=== PATIENT | male | born 1955 | race Caucasian/White ===

== ENCOUNTER → 2020-04-27 15:51 | Outpatient (BNVA) | payer OTHER, SELFPAY | PROVIDERS: Referring Provider Family Medicine; Visit Provider Orthopaedic Surgery | DX: M25.512 Pain in left shoulder (principal); G89.29 Other chronic pain | CPT/HCPCS: 73030 ==

== ENCOUNTER → 2020-05-04 09:42 | Outpatient (BNVA) | payer OTHER, SELFPAY | PROVIDERS: Visit Provider Family Medicine | DX: Z13.6 Encounter for screening for cardiovascular disorders (principal); R55 Syncope and collapse; R07.89 Other chest pain | CPT/HCPCS: 80053; 80061; 85025 ==

== ENCOUNTER 2020-05-17 07:45 | Outpatient (CLI) | payer OTHER, SELFPAY ==
--- NOTE | 2020-05-17 08:00 | MR_ITS ---
WS: [id number] MRI LEFT SHOULDER HISTORY: M25.512 - Pain in left shoulder COMPARISON: Radiograph 04/27/2020. TECHNIQUE: Multiplanar sequences of the shoulder joint are submitted. Fixation plate and screws in the mid clavicle causing artifact and distortion. Mild hypertrophic jj ges at the AC joint. Mild impingement upon the supraspinatus. There is a small amount of fluid in the subacromial and subdeltoid bursa. No os acromion. Biceps tendon is abnormal. There is abnormal signa l throughout a large portion of the biceps tendon in the bicipital groove. Tendon is thickened and en larged with a split tear. No displacement from the bicipital groove. Large amount of fluid like signa l filling a large gap over the anterior humeral head at the attachment site of the supraspinatus and subscapularis tendons. There is complete full-thickness tear at the insertion site of the supraspinat us. Marked tendinopathy of the distal subscapularis tendon but no definite full-thickness tear. Incidentally noted is atrophy of the pectoralis minor muscle. Increase fluid in the glenohumeral join t with narrowing of the joint space. No definite labral tears. MR/MR shoulder LT wo con* [id number] IMPRESSION: 1. Large full-thickness anterior supraspinatus tendon tear at the insertion si te with marked adjacent tendinopathy in the distal supraspinatus and subscapula ris tendons. 2. Abnormal biceps tendon. Thickening of the biceps tendon with increased sign al consistent with a split tear and tendinopathy but no displacement. 3. Mild glenohumeral joint arthritis.
== END 2020-05-17 07:46 | disposition home or self-care (01) ==
LOC: RADSHAW 07:49
PROVIDERS: PCP Family Medicine; Visit Provider Orthopaedic Surgery
DX: G89.29 Other chronic pain (principal); M75.102 Unspecified rotator cuff tear or rupture of left shoulder, not specified as traumatic; M13.88 Other specified arthritis, other site
CPT/HCPCS: 73221

== ENCOUNTER 2020-05-20 06:40 | Outpatient (CLI) | payer OTHER, SELFPAY ==
--- NOTE | 2020-05-20 07:00 | USCV_ITS ---
Artemio Chris Age: 64 Gender: M : 1955 Exam Date: 05/20/2020 07:31 Ordering Phys: Benita Urias DO Technologist: Enrique Coffey Exam Location: [facility] [place] Indication: PRE SYNCOPE Risk Factors: None Previous Vascular Surgery: Right Brachial BP: / Left Brachial BP: / Right Left Velocity (cm/s) Spectral Plaque Velocity (cm/s) Spectral Plaque Syst/Diast Broadening Syst/Diast Broadening 66.00/ 14.70 Prox CCA 64.80 / 13.60 62.25/ 16.70 Mid CCA 66.30 / 12.10 57.05/ 13.05 Hetro Distal CCA 64.10 / 12.10 Hetro 60.30/ 13.35 Hetro Prox ICA 76.40 / 19.50 Hetro 55.50/ 13.00 Mid ICA 81.10 / 7.80 57.33/ 16.40 Distal ICA 70.20 / 13.30 79.00 ECA 78.70 1.12 ICA/CCA 1.22 Antegrade Vertebral Antegrade 43.70/ 12.10 cm/s 74.10/ 15.60 cm/s Tri Subclavian Tri 99.00 1.60 FINDINGS Mild to moderate heterogeneous plaques at the bifurcations bilaterally Intimal thickening in the common carotid arteries bilaterally Antegrade flow in the vertebral arteries bilaterally Normal Doppler flow velocities in the external carotid arteries bilaterally CONCLUSIONS Mild to moderate heterogeneous plaques at the bifurcations bilaterally. No significant stenosis, based on the above findings. Dr Kaleb Perez MD [facility] (Electronically Signed) Final Date: 20 May 2020 21:06 S
--- NOTE | 2020-05-20 08:00 | USCV_ITS ---
Chris Ulloa Age: 64 Gender: M : 1955 Exam Date: 05/20/2020 07:09 Ordering Phys: Benita Urias DO Technologist: Enrique Coffey Exam Location: [facility] – [place] Indication: PRE-SYNCOPE BP: 148 / 74 HR: 68 Rhythm: Sinus Technical Quality: Good MEASUREMENTS (Male / Female) Normal Values 2D ECHO LV Diastolic Diameter PLAX 3.4 cm 4.2 - 5.9 / 3.9 - 5.3 cm LV Systolic Diameter PLAX 2.0 cm IVS Diastolic Thickness 1.2 cm 0.6 - 1.0 / 0.6 - 0.9 cm IVS Systolic Thickness 1.4 cm LVPW Diastolic Thickness 1.1 cm 0.6 - 1.0 / 0.6 - 0.9 cm LVPW Systolic Thickness 1.5 cm LVOT Diameter 2.1 cm LV Ejection Fraction 2D Teich 73.2 % LV Ejection Fraction MOD 2C 68.0 % LV Ejection Fraction 2C AL 68.4 % LA Diameter 3.5 cm LA Width 3.5 cm LA Height 3.5 cm RA Width 3.0 cm RA Height 4.2 cm M-MODE LV Diastolic Diameter MM 4.7 cm 4.2 - 5.9 / 3.9 - 5.3 cm LV Systolic Diameter MM 3.6 cm LV Ejection Fraction MM Teich 47.9 % IVS Diastolic Thickness MM 0.8 cm 0.6 - 1.0 / 0.6 - 0.9 cm IVS Systolic Thickness MM 1.5 cm LVPW Diastolic Thickness MM 1.2 cm 0.6 - 1.0 / 0.6 - 0.9 cm LVPW Systolic Thickness MM 1.8 cm RV Diastolic Diameter MM 1.3 cm Aortic Annulus Diameter 3.6 cm LA Ao Ratio MM 1.1 MV E Point Septal Separation 1.0 cm DOPPLER AV Peak Velocity 158.0 cm/s MV Area PHT 3.7 cm squared Mitral E to A Ratio 1.0 MV E' Velocity 38.5 cm/s Mitral E to MV E' Ratio 10.6 Mitral E to LV E' Lateral Ratio 11.8 Mitral E to LV E' Septal Ratio 9.7 TR Peak Velocity 129.0 cm/s TR Peak Gradient 6.7 mmHg TV Peak E Velocity 145.0 cm/s Right Atrial Pressure 3.0 mmHg Pulmonary Artery Systolic Pressu 9.7 mmHg PV Peak Velocity 103.0 cm/s FINDINGS Left Ventricle Normal left ventricular size and systolic function, EF 65 %. No regional wall motion abnormalities. Grade I/IV diastolic dysfunction (abnormal relaxation filling pattern), normal to mildly elevated filling pressures. Right Ventricle The right ventricle is normal in size and function. Right Atrium The right atrium is normal in size. Left Atrium The left atrium is normal in size. Mitral Valve Trace mitral valve regurgitation. Aortic Valve Thickened aortic valve. Trace aortic valve regurgitation. Tricuspid Valve Trace tricuspid valve regurgitation. Pulmonic Valve Pulmonic valve not well visualized. Pericardium Normal pericardium without effusion. Aorta Normal ascending aorta dimension. CONCLUSIONS Normal left ventricular size and systolic function, EF 65 %. No regional wall motion abnormalities. Grade I/IV diastolic dysfunction (abnormal relaxation filling pattern), normal to mildly elevated filling pressures. Thickened aortic valve. Trace aortic valve regurgitation. Trace tricuspid valve regurgitation. Trace mitral valve regurgitation. There is no pericardial effusion. There are no intracardiac masses. No previous study is available for comparison. Dr Kaleb Perez MD [facility] (Electronically Signed) Final Date: 20 May 2020 13:57 S
== END 2020-05-20 06:41 | disposition home or self-care (01) ==
LOC: RAD 06:42
PROVIDERS: PCP Family Medicine; Visit Provider Family Medicine
DX: R55 Syncope and collapse (principal); I08.3 Combined rheumatic disorders of mitral, aortic and tricuspid valves; I65.23 Occlusion and stenosis of bilateral carotid arteries
CPT/HCPCS: 80048; 82043; 93306; 93880

== ENCOUNTER 2020-05-28 06:45 | Day surgery (SDC) | payer OTHER, SELFPAY ==
--- NOTE | 2020-05-28 07:06 | ECG_ITS ---
[facility] Test Date: 2020-05-28 Pat Name: Chris Ulloa Department: Room: Gender: Male Insolvency Consultant: Karey Kang : 1955 Requested By: Benita Urias Order Number: [id number] Zeynep MD: MAYA WELLS Interpretive Statements NAME OF STUDY: TREADMILL STRESS TEST INDICATION: Chest Pain EXERCISE DATA: The patient was exercised by Stanton protocol. Baseline heart rate was 76 beats per minute. Baseline blood pressure was 173/89 millimeters of mercury. Target heart rate was 157 beats per minute. Maximum heart rate achieved was 129, which was 82 % of the target heart rate. Maximum blood pressure was 214/90 millimeters of mercury. Total exercise time was 8 minutes 25 seconds. Maximum METs achieved was 10.2, maximum VO2 was 35.7. The reason for ending the test was abnormal EKG changes. The patient complained of shortness of breath and chest pain during the stress test, which then resolved at the end of the test. ELECTROCARDIOGRAM: BASELINE: Sinus rhythm, normal axis, no significant ST-T changes at the baseline noted. EXERCISE: At the peak exercise level, inferolateral significant ST-T changes suggestive of ischemia noted. RECOVERY: During the recovery period, heart rate dropped appropriately. No significant ST-T changes in the recovery suggestive of ischemia noted. CONCLUSION: 1. Exercise capacity fair. 2. Heart rate response was appropriate. 3. Blood pressure response was hypertensive. 4. Symptoms suggestive of ischemia. 5. Electrocardiogram portion of the stress test was suggestive of ischemia. 6. Nuclear scan was canceled due to strong positive EKG segment of the stress test.Patient is referred for left heart cath. Electronically Signed On 05-31-2020 13:27:58 INBOUND SALES REPRESENTATIVE by MAYA WELLS [id number]
[2020-05-28 07:07] VITALS: BMI 21.7
--- NOTE | 2020-05-28 08:43 | PC.NURSE ---
Patient reports no pain or discomfort prior to the start of the procedure.
--- NOTE | 2020-05-28 09:04 | SUR.PHASEI ---
DISCUSSION Dr Lewis in to discuss finding of stress test with the patient. TST to be done as ordered. Patient to be added to cath schedule today. Handing off patient to CPR[facility], pending a bed assignment, for further managment pending cath. IV left in place as cath is tentavely scheduled for 1200 today! Report off to Bambi CONNER.
[2020-05-28 09:17] VITALS: BP 176/86; PULSE 88
--- NOTE | 2020-05-28 11:52 | XACV_ITS ---
Exam Room: [facility] Ht: 191 cm Wt: 79 kg BSA: 2.04 m2 Gender: Male : 1955 Any Known Allergies: No known allergies Exam Priority: Routine Procedure(s): Procedure Description: Diagnostic procedure Procedure Description: Left Heart Catheterization Procedure Description: Left ventriculography Procedure Description: Coronary Angiography Diagnostic Findings * LM has 0% stenosis. * mLAD: Severe 80% stenosis, JAXON: 3 flow. * mLAD: Moderate 70% stenosis, JAXON: 3 flow. * dLAD: Moderate 70% stenosis, JAXON: 3 flow. * 1st Diag: Mild 30% stenosis, JAXON: 3 flow. * 2nd Diag: Moderate 50% stenosis, JAXON: 3 flow. * pCIRC: Severe 80% stenosis, JAXON: 3 flow. * 1st OM: Severe 95% stenosis, JAXON: 3 flow. * mRCA: Severe 90% stenosis, JAXON: 3 flow. * RPDA: Moderate 50% stenosis, JAXON: 3 flow. * Coronary angiography shows co-dominance. Conclusions 1. There is severe coronary artery disease with three vessel disease. 2. Normal left ventricular systolic function. Ejection fraction of 60%. 3. Indication 4. for left heart cath: 5. High risk 6. stress test 7. with 8. chest pressure and chest pain 9. .. Recommendations * 1-Return to [facility] for close monitoring and routine post cath care 2-Continue medical managment 3-CT surgery consult to Dr Torres at [facility] [place] called since we do not have our surgeon around. 4-Statin with LDL goal of 70 mg/dl, aspirin 81 mg p.o. daily for life long 5-Follow up with Dr. Lewis in four weeks and establish care with primary care physician. Diagnostic RX Recommendation: CABG Ventriculography Ejection Fraction: 55.0 % Left Ventriculography Findings: * Normal left ventricle ejection fraction 55%, left ventricular end-diastolic pressure normal. * No * gradient across aortic valve * was noted.. Pressures Phase:Rest AO : 104 / 74 ( 90 ) @ 7:03:00 AM 111 / 71 ( 91 ) @ 7:07:00 AM 131 / 21 ( 68 ) @ 7:13:00 AM LV : 146 / 0 / @ 7:12:00 AM 151 / -6 / @ 7:13:00 AM Clinical Evaluation EBL: 5mL-10mL Procedural Details Procedure Consent Obtained. Pre-Procedure Time Out. Identified patient by full name and date of as verbalized by the patient/guarantor. Does the consent match the physician's order: Yes. Accurate & Complete Informed Consent: Yes. Inpatient/Outpatient History & Physical on Chart: Yes. If H&P is completed, is and addenduem needed: N/A; If yes, is the addendum complete: N/A. Visualize and Verify Site with Patient/Guarantor: N/A. Relevant Radiology Images available: Yes. Pre-op teaching completed and patient verbalized understanding. The risks, benefits, and alternatives of sedation and/or procedure were discussed by physician. The patient agrees to continue. Procedure started. PERRLA. Strong, equal hand risk assessor bilaterally. Lungs clear x 5 lobes. IV Site on Arrival: 22 gauge in the left anticubital. IV Fluids: 0.9% NaCl at KVO. 0 mL infused prior to laborer marine terminal. Oxygen started at 2liters/min via nasal canula. right groin was prepped with chloroprep then draped in the usual sterile fashion. right radial was prepped with chloroprep then draped in the usual sterile fashion. Physician notified. Baseline sample Acquired. HR: 65 BPM. Physician arrived. Patient's family updated. Equipment: 6F - Radial. Cardiac Cath Pack. ACIST Manifold Kit Model BT 2000. Heparinized Saline (2 units/mL), 1000 mL bag. Physician scrubbed in. Immediate Pre-Procedure Time Out. Correct Patient: Yes; Correct Procedure: Yes; Correct Site: Yes; Correct Patient Position: Yes; Correct Supplies: Yes; Dried Flammable Prep: Yes; Blood Products Available: No;. Lidocaine 1% infiltrated to the right radial. Arterial access obtained. A 5 beninese TIG catheter in over wire. Multiple views taken of left coronary artery. Catheter redirected to the RCA. Multiple views taken of right coronary artery. Catheter out. A 5 beninese Angled Pig catheter in over wire. EDP Sample taken: LV 146/-1,17; HR: 55 BPM; SpO2: 93%. LV gram performed in VEGA @ 10 mL/second for a total of 30 mL. EDP Sample taken: LV 151/-7,17; HR: 57 BPM; SpO2: 95%. Pullback taken: LV Off; AO Off; Mean: , Peak to Peak: , SEP: ; HR: 58 BPM; SpO2: 96%. Catheter out. A TR Band was successful obtaining hemostatsis at the Right Radial artery insertion site. TR band placed. Hemostasis obtained. Post Procedure: Pulses reassessed and unchanged. PERRLA. Strong, equal hand risk assessor bilaterally. No VTE prophylaxis required. Fluoro: 4:30. Contrast type used: Omnipaque 300 mgI/mL, 500 mL bottle. [id number]. Complications: none. Estimated blood loss: 5mL-10mL. Procedure completed. Patient transferred by wheelchair to 1st floor. Medication's Wasted: Lidocaine 1% = 15 mL. Medication's Wasted: Nitro = 49.8 mg. Medication's Wasted: Heparin = 1000 units. Total IV fluids: 50 mL. [facility] Clinical Fraility Score: 2: Well. Tower Dragline Operator Indications: New Onset Angina. Chest Pain Symptom Assessment: Typical Angina Symptoms. Post-op diagnosis: 3 vessel disease. Vital chart was stopped. Access Site Site: Right Radial artery Sheath Size: 6 Fr Hemostasis Method: TR Band Hemostasis Success: Successful Procedure Medications Start: 12:46 PM Stop: 12:46 PM Medication: Versed Amount: 1 mg Route: I.V. Start: 12:46 PM Stop: 12:46 PM Medication: Fentanyl Amount: 50 mcg Route: I.V. Start: 12:57 PM Stop: 12:57 PM Medication: Versed Amount: 1 mg Route: I.V. Start: 12:57 PM Stop: 12:57 PM Medication: Fentanyl Amount: 50 mcg Route: I.V. Start: 1:00 PM Stop: 1:00 PM Medication: Nitrogylcerin Amount: 200 mcg Route: I.A. Start: 1:02 PM Stop: 1:02 PM Medication: Heparin Amount: 5000 units Route: I.V. I, the attending physician, have reviewed and verified all procedure medications. Yes, all medications given per verbal order History/Risk Factors Tobacco Use: Never Report Signatures Finalized by Ana Maria Lewis MD on 05/29/2020 05:14 PM
[2020-05-28 11:59] LABS: SARS Covid-2 Antigen Negative (Negative)
[2020-05-28 12:02] LABS: Hematocrit 40.3 % (42.0-52.0); Lymphocytes # 1.4 10^3/uL (0.8-4.8); Mean Corpuscular HGB Conc 32.3 g/dL (30.0-36.0); Mean Corpuscular Hemoglobin 30.5 pg (28.0-34.0); Mean Corpuscular Volume 94.6 fL (80-94); Mean Platelet Volume 11.4 fL (7.4-10.4); Monocytes # 0.4 10^3/uL (0.2-0.9); Neutrophils # 1.97 10^3/uL (1.8-7.7); Neutrophils % 50.7 %; Nucleated Red Blood Cells % 0 %; Platelet Count 260 10^3/cmm (130-400); Red Blood Count 4.26 10^6/uL (4.1-5.3); Red Cell Distribution Width 13.1 % (12.1-15.1); White Blood Count 3.9 10^3/uL (4.0-10.0)
[2020-05-28] MEDS: metoprolol tartrate 25 mg Tablet 12.5 MG PO (12:05)
[2020-05-28] MEDS: aspirin 325 mg Tablet PO (12:05)
[2020-05-28 12:10] LABS: INR 0.98 (0.8-1.2)
[2020-05-28 12:17] LABS: Blood Urea Nitrogen 11 mg/dL (8-23); Calcium 9.6 mg/dL (8.5-10.5); Carbon Dioxide 29 mmol/L (22-29); Chloride 102 mmol/L (98-107); Glomerular Filtration Rate 67.6 mL/min (90-130); Glucose 94 mg/dL (65-115); Osmolality Calculated 289 mOsm/kg (285-295); Sodium 140 mmol/L (136-145)
--- NOTE | 2020-05-28 12:42 | PM.HP ---
Providers/Chief Complaint Primary Care Provider: Benita Urias DO Chief Complaint: chest pain 35966 R07.89 History of Present Illness Chris Ulloa is a 64 year old male past medical history significant for strong family history of coronary artery disease apart from nothing significant started experiencing shortness of breath along with chest pressure for the last 6-month which has been worsening over time to the extent that he has to stop many time during mowing lawn. He mentioned it to his primary care physician who ordered a stress test. In the middle of the stress test patient started having chest pain and shortness of breath with dynamic EKG changes with ST elevation in the aVR and inferolateral ST depression. Test was stopped patient continues with some chest pressure he was given nitro which resolved the chest pain. Due to high risk stress test it was suggested that patient should undergo angiogram. It is the reason patient has been admitted to the hospital. We will proceed with left heart cath and PCI if indicated. Patient has been explained all risk benefit and alternative for the procedure. Patient has been explained the risk of major minor bleed arrhythmia life-threatening emergent urgent bypass surgery. He understand and would like to go ahead with it. Patient also understand the long-term necessity of dual antiplatelet therapy he agrees to it. Medications/Allergies Home Medications Medication Instructions Recorded Confirmed Last Taken Type No Known Home Medications 05/04/20 05/17/20 Unknown History Allergies Allergy/AdvReac Type Severity Reaction Status Date / Time No Known Allergies Allergy Verified 05/17/20 15:42 PFSH Acute PFSH: Medical History Central apnea Hemorrhoids Mitral valve prolapse Surgical History H/O knee surgery History of shoulder surgery Social History Smoking and tobacco status: never smoked Alcohol intake: never Vitals/I&O/Wt Last Vital Signs Pulse 88 05/28/20 09:17 BP 176/86 05/28/20 09:17 Weight last 48 hrs Weight 174 lb Physical Exam Narrative: EXAM NARRATIVE: GENERAL: Patient is alert, awake and oriented x3. NECK: No jugular vein distension. HEENT: No cyanosis. No icterus. No pallor. HEART: Regular S1 and S2. No murmur, rub or gallop. LUNGS: Clear to auscultate bilaterally. ABDOMEN: Soft, nontender and nondistended. Positive bowel sounds. No guarding, rebound or tenderness. CENTRAL NERVOUS SYSTEM: Grossly nonfocal. EXTREMITIES: Lower extremities without edema bilaterally. Data : 05/28/20 10:15 05/28/20 10:15 A&P Assessment and plan (1) Unstable angina: Worsening of chest pain along with shortness of breath with increased frequency and duration and high risk stress test with chest pain dynamic EKG changes is suggestive of high-grade lesion mostly in left main or LAD territory. Since patient has ST elevation in the aVR along with ST depression in the inferolateral lead we will proceed with left heart cath and PCI if indicated. Further plan will advise as per progress of the patient Status: Acute (2) Abnormal stress test: As above patient is abnormal stress test we will proceed with left heart cath. Status: Acute Attestations Medical Necessity Statement*: I am not expecting his stay to cross more than 2 midnights. Coding Level of Care Code New Pt Acute Business Systems Lead for Chg Fwd Patient Type New History Detailed Exam Detailed Medical Decision Making Moderate Complexity Diagnoses Unstable angina I20.0 Abnormal stress test R94.39
--- NOTE | 2020-05-28 12:48 | W.PM.OPSUD ---
Surgery/Procedure H&P Update DATE OF PROCEDURE: May 28, 2020 DATE H&P PERFORMED: 05/28/20 H&P UPDATE INFORMATION: I have reviewed H&P completed within last 30 days, I have examined patient prior to procedure and No changes to prior documentation PREOP DIAGNOSIS: Abnormal stress test, chest pain, PATIENT REASSESSED PRIOR TO SEDATION, WITH NO CHANGE NOTED: Yes PHYSICAL EXAM: alert, oriented x 3 and clear to auscultation bilaterally AIRWAY EVAL/ANESTHESIA PLAN: normal airway, see other exam findings, ASA II, Risks, benefits & alternatives of sedation and/or procedure discussed and Patient agrees to continue as planned
[2020-05-28 13:58] VITALS: BP 155/88; PULSE 62; RESP 21
[2020-05-28 14:00] VITALS: BP 157/77; PULSE 58; PULSE 62; RESP 19
--- NOTE | 2020-05-28 15:10 | PC.NURSE ---
Dr howard at bedside to speak with patient about further Plan of care would like for Daughter to be present to aid in decision making Patient also would like for her to be present. Dr howard gave permission to have daughter Monika Toussaint to come in earlier than current vistiting hours. Ander from security notified of situation. Daughter simona notified
--- NOTE | 2020-05-28 17:45 | PM.DCS ---
Discharge Providers Date of Discharge: May 28, 2020 Attending Provider at Discharge: Benita Urias DO Primary Care Provider: Benita Urias DO Diagnoses at Discharge Discharge Diagnosis (1) Unstable angina: Status: Acute (2) Abnormal stress test: Status: Acute Reason for Visit Reason for Visit: chest pain 53196 R07.89 Hospital Course Hospital Course 64-year-old male past medical history significant for extensive history of coronary artery disease in the family underwent stress test for worsening of chest pain and shortness of breath. Inferolateral significant ST depression was noted suggestive of ischemia. Since patient was having chest pain or shortness of breath which is worsened upon exercise admit exercise level we decided to proceed with left heart cath. Patient underwent left heart cath found to have multiple significant coronary artery disease including tandem lesion in the mid to distal LAD, proximal circumflex obtuse marginal and mid RCA. Dr. Vazquez is not available for next 2 weeks therefore we is spoke to [place] who will take the patient as an outpatient since he is stable patient was started on beta-lynn statin aspirin isosorbide mononitrate. I have spoken to [facility] and exchange patient's information with him. Patient also establish contact with [facility] serial CT surgery and planning to go there on the Sunday. Patient has been advised in case of worsening of chest pain shortness of breath at home he can always come to ER. He has been given all the medicines. Physical Exam Narrative: EXAM NARRATIVE: GENERAL: Patient is alert, awake and oriented x3. NECK: No jugular vein distension. HEENT: No cyanosis. No icterus. No pallor. HEART: Regular S1 and S2. No murmur, rub or gallop. LUNGS: Clear to auscultate bilaterally. ABDOMEN: Soft, nontender and nondistended. Positive bowel sounds. No guarding, rebound or tenderness. CENTRAL NERVOUS SYSTEM: Grossly nonfocal. EXTREMITIES: Lower extremities without edema bilaterally. Const: COMMON NORMALS: alert Resp: COMMON NORMALS: clear to auscultation bilaterally AUSCULTATION: clear to auscultation bilaterally Neuro: SENSORIUM/ORIENTATION: Yes alert Discharge Data Data Completed and Pending: Completed Studies During Hospitalization Category Date Time Status Cardiac Stress Te st MIBI [Sestamibi Stress Test Reque st Exams 05/28/20 07:06 Draft ] Routine Pending at discharge Category Date Time Status STYLE ADVISOR request for service Routin e Exams 05/28/20 11:[address] Request Routine Exams 05/28/20 09:12 Ordered CV echo complete* [id number] Routine Ultrasound 05/29/20 05:00 Ordered Labs from last 24 hours 05/28/20 05/28/20 05/28/20 10:15 10:15 10:15 WBC RBC Hgb Hct MCV MCH MCHC RDW Plt Count MPV Neut % (Auto) Lymph % (Auto) [place] % (Auto) Eos % (Auto) Baso % (Auto) Neut # (Auto) Lymph # (Auto) [place] # (Auto) Eos # (Auto) Baso # (Auto) Nucleated RBC % (a uto) Nucleated RBCs # PT 13.20 INR 0.98 Sodium 140 Potassium 4.0 Chloride 102 Carbon Dioxide 29 Anion Gap 13.0 BUN 11 Creatinine 1.1 GFR Calculation 67.6 L Glucose 94 Calculated Osmolal ity 289 Calcium 9.6 SARS-CoV-2 Ag (Rap id) Negative 05/28/20 10:15 WBC 3.9 L RBC 4.26 Hgb 13.0 Hct 40.3 L MCV 94.6 H MCH 30.5 MCHC 32.3 RDW 13.1 Plt Count 260 MPV 11.4 H Neut % (Auto) 50.7 Lymph % (Auto) 37.0 [place] % (Auto) 10.0 Eos % (Auto) 1.0 Baso % (Auto) 1.0 Neut # (Auto) 1.97 Lymph # (Auto) 1.4 [place] # (Auto) 0.4 Eos # (Auto) 0.0 Baso # (Auto) 0.0 Nucleated RBC % (a uto) 0 Nucleated RBCs # 0.0 PT INR Sodium Potassium Chloride Carbon Dioxide Anion Gap BUN Creatinine GFR Calculation Glucose Calculated Osmolal ity Calcium SARS-CoV-2 Ag (Rap id) Vitals: Last Vital Signs Pulse 62 05/28/20 14:00 Resp 19 H 05/28/20 14:00 BP 157/77 05/28/20 14:00 Discharge Plan Discharge Patient Disposition: Home Prescriptions: New atorvastatin 40 mg Tablet 80 mg PO BEDTIME Qty: 30 RF: 3 metoprolol succinate 25 mg Tablet Extended Release 24 Hr 12.5 mg PO DAILY Qty: 30 RF: 3 lisinopril 2.5 mg Tablet 2.5 mg PO DAILY Qty: 30 RF: 3 Adult Low Dose Aspirin 81 mg tablet,delayed release (DR/EC) 81 mg PO DAILY Qty: 30 RF: 4 nitroglycerin 0.4 mg tablet, sublingual 0.4 mg sublingual Q5M Qty: 30 RF: 2 Discharge Orders: Discharge Order (Routine); Ordered 05/28/20 Ordered By: Ana Maria Howard Referrals: Ana Maria Howard MD [Physician] - 1 month (Heart care services will be calling you to set up your follow up appointments, if you do not hear from them by Sunday please call them.) Guerline Armenta FNP [Nurse Practitioner] - 4-7 days (Heart care services will be calling you to set up your follow up appointments, if you do not hear from them by Sunday please call them.) Diet: Cardiac Patient Instructions: Coronary Artery Disease (DC), Left Heart Catheterization (DC), Post Angiogram Home Care Instructions Activity Restrictions/Additional Instructions: Follow-up with Dr. Mauricio Lrema, CT surgeon at [facility] as per his instruction. Patient was given phone number for Dr. Lerma. Please feel free to call Dr. Howard if you have any problem. Follow-up with Guerline Armenta cardiology nurse practitioner in 7 to 10 days if not gone for surgery by then. Follow-up with Dr. howard in 1 month. Please picker your records to present it to Dr. Lerma on 05/30/2020 from the hospital [facility]. Take nitroglycerin sublingual if you have chest pain, if chest pain not relieved with 2 sublingual nitroglycerin at 5 minutes apart please call 911 to go to emergency room. 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
== END 2020-05-28 18:23 | disposition home or self-care (01) ==
LOC: CDL 07:08 → CSU 11:21 → CDL 06-10 11:20
PROVIDERS: Internal Medicine Cardiovascular Disease; PCP Family Medicine; Visit Provider Family Medicine
DX: I20.0 Unstable angina (principal); R94.39 Abnormal result of other cardiovascular function study; Z82.49 Family history of ischemic heart disease and other diseases of the circulatory system
CPT/HCPCS: 12345; 36415; 80048; 85025; 85610; 87426; 93017; 93452; C1769; C1887; C1894; J1644; J2250; J3010; J3490; J7030; Q9967

== ENCOUNTER → 2020-07-22 09:29 | Outpatient (BNVA) | payer OTHER, SELFPAY | PROVIDERS: PCP Family Medicine; Visit Provider Family Medicine | DX: E03.9 Hypothyroidism, unspecified (principal); I25.119 Atherosclerotic heart disease of native coronary artery with unspecified angina pectoris; G56.01 Carpal tunnel syndrome, right upper limb | CPT/HCPCS: 84443 ==

== ENCOUNTER → 2020-08-04 14:05 | Outpatient (BNVA) | payer OTHER, SELFPAY | PROVIDERS: PCP Family Medicine; Visit Provider Internal Medicine Cardiovascular Disease | DX: I25.119 Atherosclerotic heart disease of native coronary artery with unspecified angina pectoris (principal); Z95.1 Presence of aortocoronary bypass graft; I10 Essential (primary) hypertension; D50.0 Iron deficiency anemia secondary to blood loss (chronic) | CPT/HCPCS: 80053; 85025 ==

== ENCOUNTER 2020-08-19 08:30 | Day surgery (SDC) | payer OTHER, SELFPAY ==
[2020-08-17 13:53] VITALS: BMI 21.7
[2020-08-19 09:23] VITALS: BP 130/67; PULSE 78; RESP 18; TEMP 36.4; O2SAT 98
[2020-08-19] MEDS: sodium chloride 0.9% 1,000 ML 30 ML IV (09:40)
--- NOTE | 2020-08-19 09:56 | W.PM.OPSUD ---
Surgery/Procedure H&P Update DATE OF PROCEDURE: August 19, 2020 DATE H&P PERFORMED: 08/13/20 H&P UPDATE INFORMATION: I have reviewed H&P completed within last 30 days, I have examined patient prior to procedure and No changes to prior documentation PREOP DIAGNOSIS: panendoscopy PLANNED PROCEDURE: Operation Date: 08/19/20 09:40 Proposed Procedures p EGD/colon 61419 06410 Z12.11 d50.0(Not Applicable) - Julien Wright MD s Colonoscopy(Not Applicable) - Julien Wright MD
[2020-08-19 10:55] VITALS: BP 76/42; PULSE 63; RESP 16; TEMP 36.4; O2SAT 100
[2020-08-19 11:05] VITALS: BP 108/57; PULSE 62; RESP 18; O2SAT 100
--- NOTE | 2020-08-19 11:07 | ANE.PACU2 ---
Inpatient post-anesthesia follow up: Airway intact: Yes Vital signs: Temperature 97.5 F Pulse Rate 62 Respiratory Rate 18 Blood Pressure 108/57 Pulse Oximetry 100 Oxygen Delivery Me thod Room Air Oxygen Flow Rate 2 Fraction of Inspir ed Oxygen Hydration adequate: Yes Nausea and vomiting: No Pain level: 1 Mental status: Baseline
[2020-08-19 11:26] VITALS: BP 129/76; PULSE 64; RESP 18; O2SAT 100
== END 2020-08-19 11:42 | disposition home or self-care (01) ==
PROVIDERS: PCP Family Medicine; Visit Provider Surgery
PROC: 0DJ08ZZ Inspection of Upper Intestinal Tract, Via Natural or Artificial Opening Endoscopic (ICD-10-PCS; CPT 43235; principal; 2020-08-19 09:40)
PROC: 0DJD8ZZ Inspection of Lower Intestinal Tract, Via Natural or Artificial Opening Endoscopic (ICD-10-PCS; CPT 45378; 2020-08-19 09:40)
DX: D50.0 Iron deficiency anemia secondary to blood loss (chronic) (principal); K92.1 Melena; K64.8 Other hemorrhoids; I25.10 Atherosclerotic heart disease of native coronary artery without angina pectoris; I12.9 Hypertensive chronic kidney disease with stage 1 through stage 4 chronic kidney disease, or unspecified chronic kidney disease; N18.9 Chronic kidney disease, unspecified
CPT/HCPCS: 43235; 45378; 96360; 96361; J2704; J7030

== ENCOUNTER 2020-08-26 07:58 | Day surgery (SDC) | payer OTHER, SELFPAY ==
[2020-08-25 11:06] VITALS: BMI 21.5
[2020-08-26] VITALS (7 sets, daily range): BP systolic 133–185; BP diastolic 72–104; PULSE 58–66; RESP 14–18; TEMP 36.2–36.6; O2SAT 96–100
[2020-08-26] MEDS: sodium chloride 0.9% 1,000 ML 30 ML IV (08:26)
[2020-08-26] MEDS: acetaminophen 500 mg Tablet 1000 MG PO (08:32)
[2020-08-26] MEDS: midazolam 1 mg/mL INJ 2 mL 2 MG IVP (08:40)
--- NOTE | 2020-08-26 08:59 | ANES.PREANE2 ---
Pre-Anesthetic Assessment Pre-Anesthetic Assessment: Height/Weight: Height 1.93 m Weight 80.286 kg Temp Pulse Resp BP Pulse Ox 97.1 F L 66 18 155/83 98 08/26/20 08:16 08/26/20 08:16 08/26/20 08:16 08/26/20 08:16 08/26/20 08:16 Preop Diagnosis: Rotator cuff tear [] Proposed Procedure: Operation Date: 08/26/20 10:00 Proposed Procedures p Rotator Cuff Repair/Arthroplasty w/subacromial decompression 24618 M75.102(Left) - Erasto Dao MD Was Beta Lorna taken within 24 hours: Yes Was Clonidine taken within 24 hours: N/A Last intake: Intake Last Liquid Date 08/26/20 Last Liquid Time 04:30 Last Solid Date 08/25/20 Last Solid Time 19:00 Social: Social History: No alcohol and No tobacco Exam: Pre-Anes Outpt Exam: alert, oriented x 3, clear to auscultation bilaterally and regular rate & rhythm Airway: Submandibular: WNL Cervical ROM: WNL MP: 2 Dentition: Full CV/HEM: CV/HEM: Anemia, CAD (S/P CABG) and HTN GI: GI: GERD Metabolic: Metabolic: Thyroid Anesthetic Plan: ASA status: 3 Anesthesia: General and Regional (specify below) (Left interscalene) Risk of > 500 ml blood loss (7ml/kg in children): No Meds/Allergies Current Medications: Current Medications Generic Name Dose Route Start Last Admin Trade Name Freq PRN Reason Stop Dose Admin Sodium Chloride 1,000 mls @ 30 ml s/hr 08/26/20 08:15 08/26/20 08:26 Sodium Chloride 0.9% IV 08/27/20 08:14 30 mls/hr .Q24H JÚNIOR Administration Midazolam HCl 2 mg 08/26/20 08:04 08/26/20 08:40 Midazolam 1 Mg/M l Inj 2 Ml IVP 2 mg Q5M PRN Administration Preop Anxiety PFSH Anesthesia PFSH: Medical History Carpal tunnel syndrome Central apnea CKD (chronic kidney disease) Coronary artery disease Hemorrhoids History of 2019 novel coronavirus disease (COVID-19) HTN (hypertension) with goal to be determined Mitral valve prolapse Nephrolithiasis Surgical History H/O esophagogastroduodenoscopy (08/19/20) H/O knee surgery History of shoulder surgery Hx of CABG Status post colonoscopy (08/19/20) Family History (Updated 08/23/20 @ 09:24 by Navneet Holman LPN) Father Family history of premature coronary artery disease Social History Smoking and tobacco status: never smoked Alcohol intake: never Data Anesthesia Cardiac Studies: No Data to Display
--- NOTE | 2020-08-26 09:02 | ANES.PROC ---
Anesthesia Procedures Procedure/Date: 08/26/20 Nerve Block ^: Nerve Block 1: Main Anesthesia: general anesthesia Time Out Performed: Yes Consent: requested by attending/covering physician, from patient, risks and benefits reviewed and patient agrees to proceed Nerve block location: interscalene (left) Anesthesia monitors applied: pulse oximetry, EKG, BP cuff and oxygen Anesthetic Used: ropivicaine 0.5% Amount of anesthesia used (mL): 30 Ultrasound used to: recognize landmarks Nerve Stimulator Used?: No Interscalene/Femoral BLK: 2 stimuplex 22 g needle used for position and inplane approach and visualize local anesthetic spread Injection: neg aspiration of heme Patient Tolerated Procedure: well Complications: none
--- NOTE | 2020-08-26 09:37 | W.PM.OPSUD ---
Surgery/Procedure H&P Update DATE OF PROCEDURE: August 26, 2020 DATE H&P PERFORMED: 08/23/20 PREOP DIAGNOSIS: Rotator cuff tear [] PLANNED PROCEDURE: Operation Date: 08/26/20 10:00 Proposed Procedures p Rotator Cuff Repair/Arthroplasty w/subacromial decompression 85615 M75.102(Left) - Erasto Dao MD
--- NOTE | 2020-08-26 11:46 | P.OP_ITS ---
Operative Report Date of procedure: August 26, 2020 Pre-op Diagnosis: Rotator cuff tear left shoulder Post-op diagnosis: same Post-op Diagnosis: Left shoulder with impingement Procedure Done: Arthroscopic left rotator cuff repair, arthroscopic left subacromial decompression Implants: 4.0 mm Neves and Nephew Helicoil anchors x2, 4.0 mm Neves and Nephew Helicoil knotless Pathology: none sent Surgeon: Erasto Dao Anesthesia: General and Nerve Block (Interscalene block) Estimated blood loss (mL): 10 Complications: None Findings: The patient had a full-thickness tear approximately 2 cm from anterior to posterior with a centimeter tendinous retraction. The tear was posterior to the bioccipital groove. No biceps pathology or pathology was identified within the bicipital groove. He had prominent anterior spurring. No chondromalacia of the glenohumeral joint or labral pathology was noted. Condition: stable Procedure: The patient was taken to the operating room, given 2 g of Ancef, and given a general anesthesia. He was positioned in the lateral position with his left arm in 10 and later 15 pounds of traction. A timeout was performed. A posterior portal was made 2 cm inferior and medial to the posterior corner of the acromion. A scope cannula and trocar were driven into the glenohumeral joint. No significant chondromalacia labral tearing or biceps tendon pathology was noted. The patient was noted to have a full-thickness tear of his posterior supraspinatus footprint. The scope was then directed to the subacromial space and a lateral and anterior portal were opened up with a scalpel blade. Bursal tissue was removed with the Neves and Nephew Werewolf probe. The rotator cuff tear was identified and outlined. The tear itself measured approximately 2 cm anterior to posterior with a centimeter of tendinous retraction. The leading edge of acromion was outlined revealing anterior spurring. A 5.5 mm acromionizer was introduced and approximately 4 mm of anterior acromion were removed converting the acromion to type I morphology. Attention was then focused on the rotator cuff. The footprint was debrided with an incisor shaver. Through a lateral stab wound a Neves and Nephew Helicoil 4.0 mm in length was placed in the posterior medial footprint. A Neves and Nephew FirstPass suture passer was used to shuttle 2 limbs of Ultratape through the posterior rotator cuff proximally 8 mm from its edge, the first far posteriorly and the second limb approximately 5 mm anterior to that. A second identical anchor was placed in the anterior medial foot. The 2 sutures passed in identical fashion. The sutures from each anchor were secured with a sliding Rojas knot and a half hitch repairing the medial cuff to bone. One suture from each anchor was then brought out through the lateral portal. A Neves and Nephew Helicoil 4.0 mm knotless anchor was then placed in the posterior lateral footprint. The sutures secured to the anchor and the anchor buried. This was repeated with a second Neves and Nephew Helicoil knotless anchor anterior later ally with the remaining 2 sutures. This completed the lateral row repair. The repair was probed and found to be stable. Portals were closed with 3-0 Prolene. Sterile dressings were applied. The p atient was placed in a sling, extubated, and taken to recovery room in stable condition..
--- NOTE | 2020-08-26 12:08 | SUR.PHASEI ---
1202 PT AWAKE ALERT SPITTING VERY FREQUENTLY HOB AT 45 PT LT ARM IN SLING AND PT HAD SHOULDER BLOCK PRE SURGERY PT DISTAL FINGERS PINK WARM CAP REFILL LESS THAN 3 SECONDS, VSS IV PATENT PT GIVEN YANKER SX TO ASSIST WITH FREQUENT ORAL SECRETIONS PT USING WITH MINIMAL ASSIST PT REQUESTS TO URINATE, PT TO OPS FOR PRIVACY AND GIVEN URINAL AND DAUGHTER AT BEDSIDE, HANDOFF AT BEDSIDE WITH OPS NURSE.
--- NOTE | 2020-08-26 15:22 | ANE.PACU2 ---
Inpatient post-anesthesia follow up: Airway intact: Yes Vital signs: Temperature 98 F Pulse Rate 63 Respiratory Rate 16 Blood Pressure 169/100 Pulse Oximetry 96 Oxygen Delivery Me thod Room Air Oxygen Flow Rate 8 Fraction of Inspir ed Oxygen Hydration adequate: Yes Nausea and vomiting: No Pain level: 1 Mental status: Baseline
== END 2020-08-26 13:00 | disposition home or self-care (01) ==
PROVIDERS: PCP Family Medicine; Visit Provider Orthopaedic Surgery
PROC: (CPT 29826; principal; 2020-08-26 09:50)
PROC: (CPT 29805; 2020-08-26 09:50)
DX: M75.102 Unspecified rotator cuff tear or rupture of left shoulder, not specified as traumatic (principal); I25.10 Atherosclerotic heart disease of native coronary artery without angina pectoris; Z95.1 Presence of aortocoronary bypass graft; K21.9 Gastro-esophageal reflux disease without esophagitis; I12.9 Hypertensive chronic kidney disease with stage 1 through stage 4 chronic kidney disease, or unspecified chronic kidney disease; N18.9 Chronic kidney disease, unspecified; Z79.82 Long term (current) use of aspirin
CPT/HCPCS: 29826; 29827; 29828; 64415; 76942; 96374; C1713; J0690; J1100; J2250; J2405; J2704; J2795; J3010; J3490; J7030

== ENCOUNTER → 2020-09-21 13:00 | Outpatient (BNVA) | payer OTHER, SELFPAY | PROVIDERS: PCP Family Medicine; Visit Provider Psychiatry & Neurology Neurology | DX: R20.0 Anesthesia of skin (principal); G56.01 Carpal tunnel syndrome, right upper limb; G62.9 Polyneuropathy, unspecified | CPT/HCPCS: 95886; 95911 ==

== ENCOUNTER 2020-10-18 15:14 | Outpatient (CLI) | payer OTHER, SELFPAY ==
--- NOTE | 2020-10-18 15:40 | MR_ITS ---
WS: [id number] MRI CERVICAL SPINE NONCONTRAST TECHNIQUE: Sagittal T1, T2 and STIR imaging. Axial T2, gradient, and fiesta imaging. CLINICAL INFORMATION: G56.01 - Carpal tunnel syndrome, right upper limb COMPARISON: None. FINDINGS: Straightening of the normal cervical lordosis. Slight retrolisthesis C5 on C6. Disc space narrowing w orse at C5-6. Cord signal is normal. C2-C3: Mild left and no significant right foraminal narrowing. Spinal canal is patent. C3-C4: Mild disc osteophytic ridging. Mild facet arthropathy. Mild left greater than right foraminal narrowing. Mild facet arthropathy. C4-C5: Mild disc osteophytic ridging. Mild central canal stenosis. Moderate facet arthropathy. Modera te left and mild right bony foraminal narrowing. Mild central canal stenosis. C5-C6: Slight retrolisthesis C5 on C6 with mild central canal stenosis. Disc osteophytic ridging. Mod erate bilateral bony foraminal narrowing left greater than right. Moderate facet arthropathy. C6-C7: No significant disc bulging. Spinal canal and foramen are patent. C7-T1: Normal. Visualized brain stem structures: Normal. Prevertebral soft tissues: Normal. MR/MR cervical spin wo con* [id number] IMPRESSION: 1. Straightening of the normal cervical lordosis. Cord signal is normal. 2. Mild central canal stenosis C4-C5 and C5-C6 due to disc osteophyte complexe s. Slight retrolisthesis C5 on C6. 3. Moderate left C4-C5 and bilateral C5-C6 bony foraminal narrowing left great er than right.
== END 2020-10-18 15:15 | disposition home or self-care (01) ==
LOC: RADWPI 15:16
PROVIDERS: PCP Family Medicine; Visit Provider Family Medicine
DX: G56.01 Carpal tunnel syndrome, right upper limb (principal); M54.2 Cervicalgia; M48.02 Spinal stenosis, cervical region
CPT/HCPCS: 72141

== ENCOUNTER → 2020-10-29 07:59 | Outpatient (BNVA) | payer OTHER, SELFPAY | PROVIDERS: PCP Family Medicine; Visit Provider Family Medicine | DX: D50.0 Iron deficiency anemia secondary to blood loss (chronic) (principal); Z95.1 Presence of aortocoronary bypass graft; E03.9 Hypothyroidism, unspecified; I25.119 Atherosclerotic heart disease of native coronary artery with unspecified angina pectoris | CPT/HCPCS: 80061; 83036; 84443; 85025 ==

== ENCOUNTER → 2020-11-30 16:23 | Outpatient (BNVA) | payer OTHER, SELFPAY | PROVIDERS: PCP Family Medicine; Visit Provider Orthopaedic Surgery | DX: Z01.812 Encounter for preprocedural laboratory examination (principal); Z20.822 Contact with and (suspected) exposure to COVID-19 | CPT/HCPCS: 87635 ==

== ENCOUNTER 2020-12-02 08:33 | Day surgery (SDC) | payer OTHER, SELFPAY ==
[2020-12-01 16:20] VITALS: BMI 21.4
[2020-12-02 08:45] VITALS: BP 141/73; PULSE 71; RESP 18; TEMP 36.8; O2SAT 98
--- NOTE | 2020-12-02 08:55 | ANES.PREANE2 ---
Pre-Anesthetic Assessment Pre-Anesthetic Assessment: Height/Weight: Height 1.93 m Weight 79.832 kg Preop Diagnosis: Carpal Tunnel Syndrome Proposed Procedure: Operation Date: 12/02/20 10:10 Proposed Procedures p right carpal tunnel release 09571 g56.01(Right) - Erasto Dao MD Familial anesthetic complications: None Was Beta Lorna taken within 24 hours: N/A Was Clonidine taken within 24 hours: N/A Last intake: Intake Last Liquid Date 12/02/20 Last Liquid Time 06:30 Last Solid Date 12/01/20 Last Solid Time 19:00 Social: Social History: No alcohol and No tobacco Exam: Pre-Anes Outpt Exam: alert, oriented x 3, clear to auscultation bilaterally and regular rate & rhythm Airway: Cervical ROM: WNL MP: 3 Dentition: Full CV/HEM: CV/HEM: CAD (Patient had CABG in June at [facility] - has since resumed exercsies and discontinued plavix) and HTN Comments: May 2020 Echo CONCLUSIONS Normal left ventricular size and systolic function, EF 65 %. No regional wall motion abnormalities. Grade I/IV diastolic dysfunction (abnormal relaxation filling pattern), normal to mildly elevated filling pressures. Thickened aortic valve. Trace aortic valve regurgitation. Trace tricuspid valve regurgitation. Trace mitral valve regurgitation. There is no pericardial effusion. There are no intracardiac masses. No previous study is available for comparison. May 2020 Conclusions 1. There is severe coronary artery disease with three vessel disease. 2. Normal left ventricular systolic function. Ejection fraction of 60%. 3. Indication 4. for left heart cath: 5. High risk 6. stress test 7. with 8. chest pressure and chest pain 9. .. Recommendations * 1-Return to [facility] for close monitoring and routine post cath care 2-Continue medical managment 3-CT surgery consult to Dr Torres at [facility] [place] called since we do not have our surgeon around. 4-Statin with LDL goal of 70 mg/dl, aspirin 81 mg p.o. daily for life long 5-Follow up with Dr. Lewis in four weeks and establish care with primary care physician. Metabolic: Metabolic: Hyperlipidemia and Thyroid Anesthetic Plan: ASA status: 3 Anesthesia: MAC and Regional (specify below) Risk of > 500 ml blood loss (7ml/kg in children): No PFSH Anesthesia PFSH: Medical History Carpal tunnel syndrome Central apnea CKD (chronic kidney disease) Coronary artery disease Dyslipidemia Hemorrhoids History of 2019 novel coronavirus disease (COVID-19) HTN (hypertension) with goal to be determined Mitral valve prolapse Nephrolithiasis Surgical History H/O esophagogastroduodenoscopy (08/19/20) H/O knee surgery History of shoulder surgery Hx of CABG Status post colonoscopy (08/19/20) Family History Father Family history of premature coronary artery disease Social History Smoking and tobacco status: never smoked Alcohol intake: never Data Anesthesia Cardiac Studies: No Data to Display
[2020-12-02] MEDS: sodium chloride 0.9% 1,000 ML 30 ML IV (09:00)
--- NOTE | 2020-12-02 09:51 | W.PM.OPSUD ---
Surgery/Procedure H&P Update DATE OF PROCEDURE: December 02, 2020 DATE H&P PERFORMED: 08/23/20 PREOP DIAGNOSIS: Carpal Tunnel Syndrome PLANNED PROCEDURE: Operation Date: 12/02/20 10:10 Proposed Procedures p right carpal tunnel release 56832 g56.01(Right) - Erasto Dao MD
[2020-12-02 10:41] VITALS: BP 134/64; PULSE 68; RESP 16; TEMP 36.2; O2SAT 98
--- NOTE | 2020-12-02 10:44 | P.OP_ITS ---
Operative Report Date of procedure: December 02, 2020 Pre-op Diagnosis: Carpal tunnel syndrome Right Post-op diagnosis: same Post-op Findings: Same Procedure Done: Right carpal tunnel release Pathology: none sent Surgeon: Erasto Dao Anesthesia: Nerve Block ([place] block) Estimated blood loss (mL): 2 Tourniquet time (min): 20 Findings: No masses or space-occupying lesions were seen with no masses or space-occupying lesions were seen within the carpal tunnel Disposition: PACU Procedure: Patient was taken to the operating room and anesthesia provided by the anesthesia service. She was prepped and draped with the arm exposed. A timeout was performed. A 3 cm long incision was made in line with the fourth ray from the distal edge of the carpal tunnel extending proximally. The subcutaneous fat and palmar fascia was divided with a scalpel blade. Under loupe magnification the ulnar neurovascular bundle was identified distally. A hemostat could be passed under the transverse carpal ligament allowing the distal 25% to be divided. A slotted guide was then passed beneath the transverse carpal ligament and the middle 50% divided. Blunt scissors were then passed over the guide freeing the proximal ligament. The tourniquet was deflated. Hemostasis provided with electrocautery. Wound edges were infiltrated with 10 cc of a half percent Marcaine solution. Skin edges were reapproximated with 3-0 Prolene. Sterile dressings were applied. The patient was taken to the recovery room in stable condition
[2020-12-02 10:45] VITALS: BP 131/73; PULSE 69; RESP 17; O2SAT 97
[2020-12-02 10:50] VITALS: BP 148/97; PULSE 67; RESP 16; TEMP 36.5; O2SAT 98
[2020-12-02 10:52] VITALS: BP 189/81; PULSE 63; RESP 17; TEMP 36.5; O2SAT 99
--- NOTE | 2020-12-02 10:52 | W.PM.OPSUD ---
Surgery/Procedure H&P Update DATE OF PROCEDURE: December 02, 2020 DATE H&P PERFORMED: 08/23/20 PREOP DIAGNOSIS: Carpal tunnel syndrome Right PLANNED PROCEDURE: Operation Date: 12/02/20 10:10 Proposed Procedures p right carpal tunnel release 14740 g56.01(Right) - Erasto Dao MD
[2020-12-02 11:20] VITALS: BP 158/89; PULSE 65; RESP 17; O2SAT 98
--- NOTE | 2020-12-02 14:48 | ANE.PACU2 ---
Inpatient post-anesthesia follow up: Airway intact: Yes Vital signs: Temperature 97.7 F Pulse Rate 65 Respiratory Rate 17 Blood Pressure 158/89 Pulse Oximetry 98 Oxygen Delivery Me thod Room Air Oxygen Flow Rate Fraction of Inspir ed Oxygen Hydration adequate: Yes Nausea and vomiting: No Pain level: 2 Mental status: Baseline
== END 2020-12-02 11:15 | disposition home or self-care (01) ==
PROVIDERS: PCP Family Medicine; Visit Provider Orthopaedic Surgery
PROC: (CPT 64721; principal; 2020-12-02 10:00)
DX: G56.01 Carpal tunnel syndrome, right upper limb (principal); I25.10 Atherosclerotic heart disease of native coronary artery without angina pectoris; Z95.5 Presence of coronary angioplasty implant and graft; Z86.16 Personal history of COVID-19; E78.5 Hyperlipidemia, unspecified; I12.9 Hypertensive chronic kidney disease with stage 1 through stage 4 chronic kidney disease, or unspecified chronic kidney disease; N18.9 Chronic kidney disease, unspecified; Z95.1 Presence of aortocoronary bypass graft; Z82.49 Family history of ischemic heart disease and other diseases of the circulatory system; Z79.82 Long term (current) use of aspirin
CPT/HCPCS: 64721; 96365; J0690; J3010; J3490; J7030

== ENCOUNTER 2021-02-17 10:53 | Outpatient (CLI) | payer OTHER, SELFPAY ==
--- NOTE | 2021-02-17 10:57 | XR_ITS ---
WS: [id number] Chest 2 views, 02/17/2021 Clinical Data: R07.9 - Chest pain, unspecified Comparison: None. Findings: No nodules, masses or effusions are seen. The heart is normal. The pulmonary vascularity is not increased. No pneumonia or pneumothorax is seen. The aortic arch and descending aorta show mild tortuosity. There are midline sternotomy sutures. There are small wires overlying the left anterior p ortion of the heart. There is a plate in the distal left clavicle repairing an old fracture. XR/XR chest 2V* [id number] Impression: Atherosclerosis.
--- NOTE | 2021-02-17 15:32 | USCV_ITS ---
Chris Ulloa Age: 65 Gender: M : 1955 Exam Date: 02/17/2021 15:36 Ordering Phys: Ana Maria Lewis MD ([email or web address]) Technologist: Exam Location: [facility] [place] Indication: CHEST PAIN BP: 120 / 70 HR: 62 Rhythm: Sinus Technical Quality: Adequate MEASUREMENTS (Male / Female) Normal Values 2D ECHO LV Diastolic Diameter PLAX 3.7 cm 4.2 - 5.9 / 3.9 - 5.3 cm LV Systolic Diameter PLAX 2.6 cm IVS Diastolic Thickness 1.4 cm 0.6 - 1.0 / 0.6 - 0.9 cm IVS Systolic Thickness 1.3 cm LVPW Diastolic Thickness 1.2 cm 0.6 - 1.0 / 0.6 - 0.9 cm LVPW Systolic Thickness 1.4 cm LVOT Diameter 2.1 cm LV Ejection Fraction 2D Teich 56.2 % LV Ejection Fraction MOD 2C 56.5 % LV Ejection Fraction 2C AL 57.1 % LA Diameter 3.1 cm LA Width 3.3 cm LA Height 3.0 cm RA Width 3.1 cm RA Height 4.4 cm DOPPLER AV Peak Velocity 155.0 cm/s LVOT Peak Velocity 74.0 cm/s AV Area Cont Eq vti 1.5 cm squared AV Area Cont Eq pk 1.6 cm squared MV Area PHT 5.0 cm squared Mitral E to A Ratio 1.2 MV E' Velocity 38.0 cm/s Mitral E to MV E' Ratio 7.1 Mitral E to LV E' Lateral Ratio 6.6 Mitral E to LV E' Septal Ratio 7.6 TR Peak Velocity 177.0 cm/s TR Peak Gradient 12.5 mmHg TV Peak E Velocity 63.0 cm/s Right Atrial Pressure 3.0 mmHg Pulmonary Artery Systolic Pressu 15.5 mmHg FINDINGS Left Ventricle Normal left ventricular cavity size. Normal left ventricular systolic function. No regional wall motion abnormalities. Left ventricular ejection fraction is estimated at 56 %. Grade I/IV diastolic dysfunction (abnormal relaxation filling pattern), normal to mildly elevated filling pressures. Right Ventricle The right ventricle is normal in size and function. Right Atrium The right atrium is normal in size. Left Atrium The left atrium is normal in size. Mitral Valve Moderately thickened mitral valve. No mitral valve stenosis. No mitral valve regurgitation. Aortic Valve Severe aortic valve calcification. Moderate aortic valve stenosis, mean gradient 4.3 mmHg, LACHO 1.5 cm squared. Mild aortic valve regurgitation. Tricuspid Valve Structurally normal tricuspid valve without significant stenosis or regurgitation. Pulmonary artery systolic pressure is normal. Pulmonic Valve Structurally normal pulmonic valve without significant stenosis. There is no pulmonic regurgitation. Pericardium Normal pericardium without effusion. Aorta Normal ascending aorta dimension. CONCLUSIONS 1-Normal left ventricular cavity size. Normal left ventricular systolic function. No regional wall motion abnormalities. Left ventricular ejection fraction is estimated at 56 %. Grade I/IV diastolic dysfunction (abnormal relaxation filling pattern), normal to mildly elevated filling pressures. 2-Severe aortic valve calcification. Moderate aortic valve stenosis, mean gradient 4.3 mmHg, LACHO 1.5 cm squared. Mild aortic valve regurgitation. 3-Moderately thickened mitral valve. No mitral valve stenosis. No mitral valve regurgitation. 4-There is no pericardial effusion. 5-Pulmonary artery systolic pressure is within normal limits. 6-Right atrial pressure is around 5 mm of mercury. 7-No significant change since the prior echocardiogram study of 05/20/2020. Ana Maria Lewis MD (Electronically Signed) Final Date: 17 February 2021 20:43 S
[2021-02-17 16:26] LABS: Troponin 5 6HR 10.53 ng/L (0-15); Troponin 5 6HR Delta 0.53 ng/L (0-12)
== END 2021-02-17 10:54 | disposition home or self-care (01) ==
PROVIDERS: PCP Family Medicine; Visit Provider Internal Medicine Cardiovascular Disease
DX: R07.9 Chest pain, unspecified (principal); Z95.1 Presence of aortocoronary bypass graft; I08.0 Rheumatic disorders of both mitral and aortic valves; I70.90 Unspecified atherosclerosis
CPT/HCPCS: 36415; 71046; 84484; 85378; 93306

== ENCOUNTER → 2021-06-08 12:27 | Outpatient (BNVA) | payer OTHER, SELFPAY | PROVIDERS: PCP Family Medicine; Visit Provider Family Medicine | DX: I25.119 Atherosclerotic heart disease of native coronary artery with unspecified angina pectoris (principal); E03.9 Hypothyroidism, unspecified; I10 Essential (primary) hypertension; R73.03 Prediabetes | CPT/HCPCS: 80053; 80061; 83036; 84443 ==

== ENCOUNTER 2021-08-29 06:47 | Outpatient (CLI) | payer OTHER, SELFPAY ==
[2021-08-29 07:00] VITALS: BMI 21.2
--- NOTE | 2021-08-29 07:03 | NMCV_ITS ---
NM swathi perf SPECT r/s* [id number] Chris Ulloa Age: 65 Gender: M : 1955 Exam Date: 08/29/2021 07:03 Ordering Phys: Benita Urias DO Technologist: VENUS Andrade Exam Location: [facility] Indications: DYSPNEA STRESS TEST Please see separate stress test report in [facility] for full findings IMAGE PROTOCOL Rest/Stress 1 Lexiscan Day Radiopharmaceutical Dose (mCi) Administration Site Administered by Rest: Tc-99m 10.9 IV VENUS Tse Sestamibi Stress:Tc-99m 32.6 IV VENUS Andrade Sestamikaleigh Rest: 29-Aug-2021 60 Discovery 630 Stress: 29-Aug-2021 30 Discovery 630 0.4mg Lexiscan. Images obtained in supine and prone position. SPECT RESULTS Technical Quality: Excellent Raw Data Analysis: Normal Image Corrections: No attenuation or motion correction applied Summed Stress Score: 0 Summed Rest Score: 0 Summed Difference Score: 0 PERFUSION FINDINGS SPECT images demonstrate homogeneous tracer distribution throughout the myocardium. FUNCTIONAL RESULTS (calculated via Gated SPECT) Stress Image LV EF (%): 72 Stress EDV (mL):105 TID: 1.05 Stress ESV (mL):29 FUNCTIONAL FINDINGS: There is normal left ventricular systolic function. IMPRESSIONS 1. Normal myocardial perfusion imaging with no evidence of ischemia 2. LV systolic function is normal Flaco Lehman MD (Electronically Signed) Final Date: 29 August 2021 14:01 S
--- NOTE | 2021-08-29 07:03 | ECG_ITS ---
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 Interpretive Statements NAME OF STUDY: LEXISCAN SESTAMIBI STRESS TEST INDICATION: [Chest Pain; Dyspnea, ] Procedure: At the baseline, the blood pressure was 165/82mmHg with a heart rate of 59 bpm. The electrocardiogram showed normal sinus rhythm, normal axis with normal ST and T's. The Lexiscan was infused over a period of 20 seconds. A total of 0.4 mg of Lexiscan was infused. The stress phase was continued for a total of 5 minutes. Heart rate was at the end of stress phase was 72 bpm and a blood pressure of 176/79mmHg. The EKG at the peak infusion revealed since normal sinus rhythm with no significant ST-T wave changes. Sestamibi was injected 20 seconds after the Lexiscan infusion. Blood pressure at the end of recovery phase was 174/77mmHg with a heart rate of 69 bpm. Conclusion: 1. Normal EKG response to Lexiscan infusion 2. No Lexiscan induced chest pain or cardiac arrhythmia. 3. Normal blood pressure and heart rate response. 4. Sestamibi/sestamibi perfusion scan pending; see separate report. Electronically Signed On 09-17-2021 13:08:24 CDT by Flaco Lehman M.D. [id number]
[2021-08-29] MEDS: regadenoson 0.4 Mg/5 ml Syringe IVP (08:28)
[2021-08-29 08:50] VITALS: BP 174/77; PULSE 68
== END 2021-08-29 06:48 | disposition home or self-care (01) ==
LOC: CDL 06:47
PROVIDERS: PCP Family Medicine; Visit Provider Family Medicine
DX: R06.09 Other forms of dyspnea (principal); R06.02 Shortness of breath
CPT/HCPCS: 78452; 93017; A9500; J2785

== ENCOUNTER 2021-09-26 06:58 | Outpatient (CLI) | payer OTHER, SELFPAY ==
--- NOTE | 2021-09-26 07:15 | USCV_ITS ---
Chris Ulloa Age: 65 Gender: M : 1955 Exam Date: 09/26/2021 07:24 Ordering Phys: Benita Urias DO Technologist: Morris Gordillo Exam Location: [facility] – [place] Indication: PAD Risk Factors: Previous Vascular Surgery: RIGHT LEFT BP: 141.0 / 66.00 BP: 140.0/ 76.00 0 0 Waveform Velocity (cm/s) Velocity (cm/s) Waveform Triphasic 79.2 Iliac Prox 84.8 Triphasic Triphasic 78.6 Iliac Mid 81.4 Triphasic Triphasic 88.8 Iliac Distal 122.3 Triphasic Triphasic 93.1 HUMAN RESOURCES REPRESENTATIVE 82.7 Triphasic Triphasic 90.1 SFA Prox 130.1 Triphasic Triphasic 89.7 SFA Mid 88.9 Triphasic Triphasic SFA Dist Triphasic 85.4 70.5 Triphasic 84.6 POP 57.4 Triphasic Biphasic 34.7 DOCK ASSOCIATE 58.9 Triphasic Biphasic 76.2 DPA 64.0 Triphasic 1.1 NEIL 1.1 FINDINGS Normal resting ABIs bilaterally-1.1 and 1.1 Normal arterial Doppler waveforms bilaterally No significant plaques or unstable lesions in the iliac or femoral arteries bilaterally CONCLUSIONS No evidence of any significant arterial obstruction, based on the above findings. Dr Kaleb Perez MD [facility] (Electronically Signed) Final Date: 27 September 2021 08:45 S
== END 2021-09-26 06:59 | disposition home or self-care (01) ==
LOC: RAD 06:59
PROVIDERS: PCP Family Medicine; Visit Provider Family Medicine
DX: I73.9 Peripheral vascular disease, unspecified (principal)
CPT/HCPCS: 93925

== ENCOUNTER → 2021-11-22 15:43 | Outpatient (BNVA) | payer OTHER, SELFPAY | PROVIDERS: PCP Family Medicine; Referring Provider Family Medicine; Visit Provider Orthopaedic Surgery | DX: M19.011 Primary osteoarthritis, right shoulder (principal); G89.29 Other chronic pain | CPT/HCPCS: 73030 ==

== ENCOUNTER 2022-01-11 06:49 | Outpatient (CLI) | payer OTHER, SELFPAY ==
--- NOTE | 2022-01-11 07:09 | MR_ITS ---
WS: [id number] MRI RIGHT SHOULDER HISTORY: M25.511 - Pain in right shoulder COMPARISON: RIGHT shoulder radiograph 11/22/2021 TECHNIQUE: Multiplanar sequences of the shoulder joint are submitted. Mild AC joint arthritis. No significant subacromial impingement. There is a very small amount of flui d in the subacromial and subdeltoid bursa. Biceps tendon is small caliber but sits within the bicipit al groove. There is increased signal in the long head of the biceps tendon at the bicipital groove wi th increase fluid in the tendon sheath. Several anchors are noted in the humeral head from prior surg yoselin along with micrometallic artifact. There is mild thinning of the supraspinatus tendon with increased signal in the tendon. No retraction of the tendon. There is a very small amount of increased signal in the distal supraspinatus tendon w hich could represent a very minimal insertion site tear. Small amount of fluid in the subscapularis r ecess. There is increase fluid along the biceps tendon anchor in the rotator cuff interval. There is also th ickening and abnormal in thickening and increased signal in the biceps tendon external to the bicipit al groove. In the bicipital groove the tendon is small caliber and abnormal signal. Loss of the normal cortex of the humeral head. Humeral head is slightly high riding with mild widenin g of the glenohumeral joint. Loss of the normal cartilage along the glenoid surface. No definite labr al tear is identified. MR/MR shoulder RT wo con* [id number] IMPRESSION: 1. Abnormal biceps tendon. Biceps tendon in the bicipital groove is small ricki spencer and increased signal suggesting chronic tendinopathy. Extracapsular portion of the long head of the biceps tendon is thickened with increased signal and a djacent fluid consistent with tenosynovitis which is probably acute. 2. Mild AC joint arthritis. 3. Mild thinning of the supraspinatus tendon with no full thickness tear appre ciated. Indeterminate for very small insertion site tear. 4. Increase fluid along the biceps tendon anchor insertion site. 5. Loss of the normal cortex of the humeral head and glenoid from arthritis. 6. At least 2 anchors are identified within the humeral head from prior tendon repair.
== END 2022-01-11 06:50 | disposition home or self-care (01) ==
PROVIDERS: PCP Family Medicine; Visit Provider Orthopaedic Surgery
DX: M19.011 Primary osteoarthritis, right shoulder (principal)
CPT/HCPCS: 73221

== ENCOUNTER 2022-02-27 07:19 | Day surgery (SDC) | payer OTHER, SELFPAY ==
[2022-02-24 13:43] VITALS: BMI 20.7
[2022-02-27] VITALS (8 sets, daily range): BP systolic 139–196; BP diastolic 73–102; PULSE 57–64; RESP 12–23; TEMP 36.1–36.8; O2SAT 96–100
[2022-02-27] MEDS: sodium chloride 0.9% 1,000 ML 30 ML IV (07:47)
--- NOTE | 2022-02-27 08:13 | ANES.PREANE2 ---
Pre-Anesthetic Assessment Height/Weight: Height 1.93 m Weight 77.111 kg Temp Pulse Resp BP Pulse Ox O2 Del Method 97.0 F L 62 16 139/73 98 02/27/22 07:32 02/27/22 07:32 02/27/22 07:32 02/27/22 07:32 02/27/22 07:32 02/27/22 07:34 Preop Diagnosis: Carpal tunnel syndrome Right Operation Date: 02/27/22 08:50 Proposed Procedures p lap bilateral inguinal hernia repair possible open with mesh [id number] x2,K40.20(Bilateral) - Red Vega MD Familial anesthetic complications: NONE Was Beta Lorna taken within 24 hours: Yes Was Clonidine taken within 24 hours: N/A Last intake: Intake Last Liquid Date 02/26/22 Last Liquid Time 20:00 Last Solid Date 02/26/22 Last Solid Time 19:00 Social No alcohol and No tobacco Exam alert, oriented x 3, clear to auscultation bilaterally and regular rate & rhythm Airway Mallampati: Class I Dentition: full Pulmonary central sleep apnea CV/HEM Coronary Artery Disease (CABG 2020) and Hypertension Metabolic Thyroid Disease Anesthetic Plan ASA status: 3 Anesthesia: General Risk of > 500 ml blood loss (7ml/kg in children): No Medications/Allergies Home Medications Medication Instructions Recorded Confirmed Last Taken Type aspirin 81 mg tablet,delayed 81 mg PO DAILY #30 tabs 05/28/20 02/27/22 02/24/22 Rx release (Adult Low Dose Aspirin) cetirizine 10 mg capsule (Zyrtec) 10 mg PO DAILY 07/22/20 02/27/22 02/26/22 08:00 History diphenhydramine HCl 50 mg capsule 25 mg PO QID PRN ALLERGIES 02/17/21 02/27/22 02/26/22 History levothyroxine 50 mcg tablet 50 mcg PO DAILY #90 tabs 06/09/21 02/27/22 02/27/22 06:00 Rx atorvastatin 40 mg tablet 40 mg PO .hs dyslipidemia #90 tabs 07/19/21 02/27/22 02/26/22 20:00 Rx losartan 25 mg tablet 25 mg PO DAILY #90 tabs 09/05/21 02/27/22 02/27/22 06:00 Rx niacin 1,000 mg tablet,extended 1,000 mg PO BID #180 tabs 09/05/21 02/27/22 02/26/22 07:00 Rx release metoprolol tartrate 25 mg tablet 12.5 mg PO BID #90 tabs 01/06/22 02/27/22 02/26/22 20:00 Rx Allergies Allergy/AdvReac Type Severity Reaction Status Date / Time latex Allergy ALGY-Rash Verified 02/24/22 13:41 Current Medications Generic Name Dose Route Start Last Admin Trade Name Tory PRN Reason Stop Dose Admin Sodium Chloride 1,000 mls @ 30 mls/hr 02/27/22 07:30 02/27/22 07:47 Sodium Chloride 0.9% IV 02/28/22 07:29 30 mls/hr .Q24H JÚNIOR Administration PFSH Anesthesia Medical History (Updated 01/21/22 @ 19:38 by Chris Ulloa MD) Anemia Bilateral inguinal hernia Carpal tunnel syndrome Carpal tunnel syndrome, right Central apnea Central sleep apnea Chest pain Chronic left shoulder pain Chronic right shoulder pain CKD (chronic kidney disease) Coronary artery disease MICHAEL (dyspnea on exertion) Dyslipidemia Foot drop, left Hemorrhoids History of 2019 novel coronavirus disease (COVID-19) HTN (hypertension) with goal to be determined Hypothyroidism (acquired) Mitral valve prolapse Nephrolithiasis Neuropathy PAD (peripheral artery disease) Prediabetes Surgical History (Updated 01/21/22 @ 19:38 by Chris Ulloa MD) H/O esophagogastroduodenoscopy (08/19/20) H/O knee surgery History of arthroscopic surgery of shoulder History of shoulder surgery Hx of CABG S/P triple vessel bypass Status post colonoscopy (08/19/20) Family History Father Family history of premature coronary artery disease Social History Smoking and tobacco status: never smoked Alcohol intake: never Data Anesthesia Cardiac Studies: Echocardiogram 02/17/21 Echocardiogram Ultrasound 05/20/20 Sestamibi Stress Test (Cardiology) 08/29/21
--- NOTE | 2022-02-27 10:01 | P.HP_ITS ---
Same Day Surgery H&P Indication for Procedure/HPI DATE OF PROCEDURE: February 27, 2022 CHIEF COMPLAINT/INDICATIONFOR SURGICAL PROCEDURE: Groin hernia PREOP DIAGNOSIS: Groin hernias PLANNED PROCEDURE: Operation Date: 02/27/22 08:50 Proposed Procedures p lap bilateral inguinal hernia repair possible open with mesh [id number] x2,K40.20(Bilateral) - Red Vega MD 01/18/2022 This is a pleasant 66 years old gentleman referred to my practice with concern of bilateral groin hernias.? That has been going on for quite some time and the patient is aware of them, does not seem that the hernias are not bothering him much the patient is concerned about the extent of the hernias and he is seeking surgical recommendations, never had inguinal hernia repair before.? Denies any signs or symptoms of bowel and he denies any evidence of incarceration. 02/27/22 Patient comes today for laparoscopic bilateral inguinal hernia repair possible open with mesh placement. No much change since last visit to the office. ROS All systems have been reviewed negative except as for the above or per problem list. Medications/Allergies* Home Medications Medication Instructions Recorded Confirmed Type cetirizine 10 mg capsule (Zyrtec) 10 mg PO DAILY 07/22/20 02/27/22 History diphenhydramine HCl 50 mg capsule 25 mg PO QID PRN ALLERGIES 02/17/21 02/27/22 History Allergies/Adverse Reactions Allergy/AdvReac Type Severity Reaction Status Date / Time latex Allergy ALGY-Rash Verified 02/27/22 10:10 Current Medications: Generic Name Dose Route Start Last Admin Trade Name Freq PRN Reason Stop Dose Admin Sodium Chloride 1,000 mls @ 30 mls/hr 02/27/22 07:30 02/27/22 07:47 Sodium Chloride 0.9% IV 02/28/22 07:29 30 mls/hr .Q24H JÚNIOR Administration Pertinent History/Comorbid Conditions* Medical History (Updated 01/21/22 @ 19:38 by Chris Ulloa MD) Anemia Bilateral inguinal hernia Carpal tunnel syndrome Carpal tunnel syndrome, right Central apnea Central sleep apnea Chest pain Chronic left shoulder pain Chronic right shoulder pain CKD (chronic kidney disease) Coronary artery disease MICHAEL (dyspnea on exertion) Dyslipidemia Foot drop, left Hemorrhoids History of 2019 novel coronavirus disease (COVID-19) HTN (hypertension) with goal to be determined Hypothyroidism (acquired) Mitral valve prolapse Nephrolithiasis Neuropathy PAD (peripheral artery disease) Prediabetes Surgical History (Updated 01/21/22 @ 19:38 by Chris Ulloa MD) H/O esophagogastroduodenoscopy (08/19/20) H/O knee surgery History of arthroscopic surgery of shoulder History of shoulder surgery Hx of CABG S/P triple vessel bypass Status post colonoscopy (08/19/20) Family History (Updated 08/23/20 @ 09:24 by Navneet Holman LPN) Family history of premature coronary artery disease Father Social History Smoking and tobacco status: never smoked Alcohol intake: never Pertinent Exam Findings alert, clear to auscultation bilaterally, regular rate & rhythm and procedure specific exam findings (Bilateral groin exam stable) Recommendations Surgery/Procedure today (Laparoscopic bilateral inguinal hernia repair with mesh placement) Other Plans: Possible open Coding Level of Care Code Acute Fish And Wildlife Biologist for Mary Alvarado
[2022-02-27] MEDS: ampicillin-sulbactam 3 GM in sodium chloride 0.9% (plus) 50 ML IV (10:17)
--- NOTE | 2022-02-27 12:43 | PM.OP ---
Operative Report Date of procedure: February 27, 2022 Pre-op diagnosis: Preop Diagnosis Groin hernias Post-op findings: Bilateral direct inguinal hernias Procedure done: 1-Laparoscopic bilateral inguinal hernia repair with mesh placed 2-Laparoscopic excision of lipoma of the left cord Implants: 3D mesh medium sizex2 Specimens removed/disposition: Lipoma of the cord Surgeon: Red Vega MD Blacking Machine Operator: Surgical techMarion Obrien Anesthesia: General (Dr. Peterson and LIVIER Jerome) Estimated blood loss: 5 IV fluids (mL): 800 Urine output (mL): 300 Procedure: Transabdominal preperitoneal (PITA) approach. Patient was identified in the holding area ,patient was transferred to the operating room where he was placed in supine position, with both arms were tucked, antibiotic was given with induction, endotracheal tube was placed per anesthesia, Adrian catheter was inserted by the circulating nurse and revealed clear urine, prep and drape of the abdomen was done under the usual sterile technique as well as the scrotal area. Time-out was done verifying the patient's name/date of /planned procedure destination after the procedure, all were in agreement. SCDs confirmed to be functioning, preoperative antibiotics administered per protocol, and beta lynn protocol was confirmed. A vertical skin incision of 1.2 cm was made with 11 blade knife through the supra umbilicus , incision was carried down to the subcutaneous tissue and deepened to identify the anterior fascia, two stay sutures were applied to the fascia, and safe entrance to the abdominal cavity was achieved, a Brewer trocar technique safe entry to the abdominal cavity was achieved verified by using 10 mm zero degree laparoscopy, switched to a 30 degrees scope,low flow followed by a higher flow of CO2 gas up to 15 mmHg. There was no evidence of injury to intra-abdominal structures from the port entry, attention was deviated to both groins, there was a larger direct hernia defect with herniation of peritoneum and preperitoneal fat was noted on the right side and a smaller direct component on the left side, two 5 mm ports were placed on the right and left lateral aspect of the abdomen slightly above the level of the umbilicus, under direct visualization, anesthesia 2% lidocaine local was injected at all trocar sites prior to incisions. The peritoneum above the level of the iliopubic tract was incised to the right of the midline and dissection was performed to create a preperitoneal space medial to lateral aspect up to anterior superior iliac spine on the right side. Dissection was continued onto the medial aspect and the right spermatic was identified, there was evidence of direct inguinal hernia .the sac was dissected. As it applied medial to the right inferior epigastric vessels/ dissection was performed to clear the space lateral to the spermatic cord and dorsomedial to it, the hernia sac was reduced and retracted far back, so there was no evidence of indirect inguinal hernia. Dissection was done using Enseal device under direct visualization. Then a medium right 3-D mesh was rolled and placed into the abdominal cavity through the Brewer port, after the mesh was introduced it was positioned to lie in the myopectineal orifice and the mesh was unrolled and this covered the entire my myope pectineal orifice. Intra-abdominal pressure was dropped to 12 mmHg to help placement of the mesh good position On the lateral aspect of the mesh extended up to the anterior superior iliac spine on the medial aspect the mesh crossed the midline onto the left side, then using absorbable tacks, placed above the iliopubic tract onto the rectus abdominis muscle on the medial aspect and also to the lateral abdominal wall superomedial to the sacroiliac spine, then the mesh was also anchored to the pubis and the Hosea's ligament inferiorly. The peritoneal leaflets were then brought together to cover the mesh and isolated from the other viscera, extra tacks were used to secure the peritoneum in good position. Final look demonstrated good hemostasis and the mesh in good position The same technique was used on the left side where a smaller direct hernia sac was dissected and another smaller lipoma of the cord was dissected, and another piece of medium sized 3-D mesh was used and tacks were used in the same pattern for fixation. lipoma of the cord was sent for permanent pathology after being dissected. On the lateral aspect of the mesh extended up to the anterior superior iliac spine on the medial aspect the mesh crossed the midline onto the right side, then using absorbable tacks, placed above the iliopubic tract onto the rectus abdominis muscle on the medial aspect and also to the lateral abdominal wall superomedial to the sacroiliac spine, then the mesh was also anchored to the pubis and the Hosea's ligament inferiorly. The peritoneal leaflets were then brought together to cover the mesh and isolated from the other viscera, extra tacks were used to secure the peritoneum in good position. A total of 20 mL Exparel 40 ml Normal saline 20 ml bupivacaine 0.25% were injected at the remaining of the tacks site and trocar sites as well Final look demonstrated good hemostasis.Then the fascia on the supra umbilical fascial defect was closed using #1 PDS sutures under direct visualization using fascial closure device Sy Shelley.All ports were removed,then the abdomen was desufflated. All skin incisions were closed with 3-0 Vicryl followed by 4-0 Monocryl subcuticular suture and Dermabond was applied. The patient tolerated the procedure well, Adrian catheter was taken out and a scrotal support was provided,got extubated and was transferred to the recovery area in stable condition. All counts of instruments, needles and sponges were completed I was present for the whole entire procedure
--- NOTE | 2022-02-27 13:35 | SUR.PHASEII ---
13:20 PAIN MEDICATION OFFERED, PATIENT DECLINED.
--- NOTE | 2022-02-27 14:13 | ANE.PACU2 ---
Inpatient post-anesthesia follow up: Airway intact: Yes Vital signs: Temperature 97.3 F Pulse Rate 57 Respiratory Rate 14 Blood Pressure 167/85 Pulse Oximetry 98 Oxygen Delivery Me thod Room Air Oxygen Flow Rate 6 Fraction of Inspir ed Oxygen Hydration adequate: Yes Nausea and vomiting: No Pain level: 1 Mental status: Baseline
--- NOTE | 2022-02-27 14:30 | SUR.PHASEII ---
14:20 PATIENT DECLINED PAIN MEDICATION.
== END 2022-02-27 14:25 | disposition home or self-care (01) ==
PROVIDERS: PCP Family Medicine; Visit Provider Surgery
PROC: (CPT 49650; principal; 2022-02-27 08:40)
DX: K40.20 Bilateral inguinal hernia, without obstruction or gangrene, not specified as recurrent (principal); D17.6 Benign lipomatous neoplasm of spermatic cord; G47.31 Primary central sleep apnea; I12.9 Hypertensive chronic kidney disease with stage 1 through stage 4 chronic kidney disease, or unspecified chronic kidney disease; N18.9 Chronic kidney disease, unspecified; I25.10 Atherosclerotic heart disease of native coronary artery without angina pectoris; E78.5 Hyperlipidemia, unspecified; E03.9 Hypothyroidism, unspecified; Z79.82 Long term (current) use of aspirin; Z95.1 Presence of aortocoronary bypass graft
CPT/HCPCS: 49650; 51702; 88304; C9290; J0295; J1100; J2405; J2704; J3010; J3490; J7030

== ENCOUNTER → 2022-03-29 10:04 | Outpatient (BNVA) | payer OTHER, SELFPAY | PROVIDERS: PCP Family Medicine; Visit Provider Family Medicine | DX: E03.9 Hypothyroidism, unspecified (principal); I25.119 Atherosclerotic heart disease of native coronary artery with unspecified angina pectoris; N18.9 Chronic kidney disease, unspecified; Z12.5 Encounter for screening for malignant neoplasm of prostate | CPT/HCPCS: 80053; 80061; 83036; 84153; 84443; 85025; 86140 ==

== ENCOUNTER → 2022-04-17 13:25 | Outpatient (BNVA) | payer OTHER, SELFPAY | PROVIDERS: PCP Family Medicine; Referring Provider Family Medicine; Visit Provider Specialist | DX: R20.0 Anesthesia of skin (principal); R20.2 Paresthesia of skin; G62.89 Other specified polyneuropathies | CPT/HCPCS: 36415; 82607; 82746; 83921; 84155; 84165; 86140; 86334 ==

== ENCOUNTER → 2022-04-28 08:53 | Outpatient (BNVA) | payer OTHER, SELFPAY | PROVIDERS: PCP Family Medicine; Visit Provider Urology | DX: R97.20 Elevated prostate specific antigen [PSA] (principal) | CPT/HCPCS: 84153 ==

== ENCOUNTER 2022-06-12 07:58 | Outpatient (CLI) | payer OTHER, SELFPAY ==
--- NOTE | 2022-06-12 08:00 | USCV_ITS ---
Artemio Chris Age: 66 Gender: M : 1955 Exam Date: 06/12/2022 08:24 Ordering Phys: Flaco Lehman M.D ([email or web address]) Technologist: Cynthia Mccullough Exam Location: [facility] Indication: Known BP: 155 / 77 HR: 67 Rhythm: Sinus Technical Quality: Adequate MEASUREMENTS (Male / Female) Normal Values 2D ECHO LV Diastolic Diameter PLAX 3.9 cm 4.2 - 5.9 / 3.9 - 5.3 cm LV Systolic Diameter PLAX 3.2 cm LV Chamber Size 4.0 cm IVS Diastolic Thickness 0.7 cm 0.6 - 1.0 / 0.6 - 0.9 cm IVS Systolic Thickness 1.1 cm LVPW Diastolic Thickness 1.0 cm 0.6 - 1.0 / 0.6 - 0.9 cm LVPW Systolic Thickness 1.1 cm RV Chamber Size 2.8 cm LVOT Diameter 2.0 cm LV Ejection Fraction 2D Teich 40.0 % LV Ejection Fraction MOD 2C 54.7 % LV Ejection Fraction 2C AL 54.2 % LA Diameter 2.2 cm LA Width 3.4 cm LA Height 3.0 cm RA Width 3.6 cm RA Height 3.1 cm Aorta at Sinotubular Diameter 2.7 cm IVC Diameter 1.5 cm M-MODE Aortic Annulus Diameter 2.5 cm LA Ao Ratio MM 1.1 MV E Point Septal Separation 0.3 cm DOPPLER AV Peak Velocity 210.8 cm/s LVOT Peak Velocity 72.3 cm/s AV Area Cont Eq vti 1.2 cm squared AV Area Cont Eq pk 1.1 cm squared MV Area PHT 3.5 cm squared Mitral E to A Ratio 1.5 MV E' Velocity 47.5 cm/s Mitral E to MV E' Ratio 10.2 Mitral E to LV E' Lateral Ratio 10.4 Mitral E to LV E' Septal Ratio 9.9 TR Peak Velocity 183.1 cm/s TR Peak Gradient 13.4 mmHg TR Mean Velocity 115.3 cm/s TR Mean Gradient 6.2 mmHg TR Velocity Time Integral 40.8 cm TV Peak E Velocity 87.0 cm/s RV Acceleration Time 0.0 s RV Ejection Time 0.3 s RV AcT/ET 0.1 FINDINGS Left Ventricle Left ventricle is normal in size. LV systolic function is normal with EF of 55 to 60%. No regional wall motion abnormalities are seen. Diastolic function is normal. Right Ventricle Normal in size and function Right Atrium Normal in size Left Atrium Normal in size Mitral Valve Mildly thickened. Aortic Valve Aortic valve is thickened. Mild aortic regurgitation. Mild aortic stenosis with aortic valve area of 1.29 cm squared and mean gradient across aortic valve of 10 mmHg. Tricuspid Valve Mild tricuspid regurgitation. Insufficient TR jet to calculate RVSP Pulmonic Valve Not well-visualized Pericardium Normal Aorta Normal in size IVC Appears to be normal CONCLUSIONS LV systolic function is normal with EF of 55 to 60%. Diastolic function is normal. Aortic valve is thickened. Mild aortic regurgitation. Mild aortic stenosis is seen. Mild tricuspid regurgitation Compared to prior echocardiogram from 02/17/2021, no significant changes are seen Flaco Lehman MD (Electronically Signed) Final Date: 14 June 2022 11:22 S
== END 2022-06-12 07:59 | disposition home or self-care (01) ==
PROVIDERS: PCP Family Medicine; Visit Provider Internal Medicine
DX: I35.0 Nonrheumatic aortic (valve) stenosis (principal); I07.1 Rheumatic tricuspid insufficiency
CPT/HCPCS: 71046; 93306

== ENCOUNTER → 2022-07-21 16:21 | Outpatient (BNVA) | payer SELFPAY | PROVIDERS: PCP Family Medicine; Visit Provider Family Medicine | DX: Z13.6 Encounter for screening for cardiovascular disorders (principal) | CPT/HCPCS: 80061; 82947; 83036 ==

== ENCOUNTER → 2022-08-22 16:45 | Outpatient (BNVA) | payer SELFPAY | PROVIDERS: PCP Family Medicine; Visit Provider Family Medicine | DX: Z01.89 Encounter for other specified special examinations (principal) ==

== ENCOUNTER → 2022-09-11 15:42 | Outpatient (BNVA) | payer OTHER, SELFPAY | PROVIDERS: PCP Family Medicine; Visit Provider Urology | DX: R97.20 Elevated prostate specific antigen [PSA] (principal) | CPT/HCPCS: 81003 ==

== ENCOUNTER 2022-11-27 12:11 | Outpatient (CLI) | payer OTHER, SELFPAY ==
--- NOTE | 2022-11-27 12:18 | MR_ITS ---
WS: [id number] MRI SACRUM without CONTRAST. COMPARISON: None Multiplanar, multisequence imaging is performed without contrast. History: Bilateral lower extremity neuropathy. No specific injury. Increasing symptoms. No marrow edema or signal abnormality within the sacrum or visualized bones of the pelvis. Sacral ner ve roots are exiting without difficulty. No soft tissue masses or abnormal signal along the neural fo ramina or displacement of the sacral nerve roots. Normal posterior alignment of the sacral and coccyg eal segments. No free fluid or adenopathy identified within the pelvis. Paracentral disc protrusions at L4-5 and L5-S1. Slightly greater encroachment of ventral thecal sac a t L4-5. No sclerosis or edema along the SI joints. No fusion. Seminal vesicles are prominent bilatera lly and incompletely visualized. MR/MR sacrum wo con* [id number] IMPRESSION: 1. No sacral abnormality is identified. Nerve roots are normal in appearance w ith no displacement. No edema within the sacrum. 2. Central disc protrusions at L4-5 and L5-S1. Greater encroachment upon the v entral thecal sac at L4-5. Patient may benefit from an MRI of the lumbar spine to further evaluate disc protrusions or stenosis.
== END 2022-11-27 12:12 | disposition home or self-care (01) ==
PROVIDERS: PCP Family Medicine; Visit Provider Specialist
DX: G62.89 Other specified polyneuropathies (principal); M21.372 Foot drop, left foot; M51.27 Other intervertebral disc displacement, lumbosacral region
CPT/HCPCS: 72148

== ENCOUNTER 2022-12-01 09:25 | Day surgery (SDC) | payer OTHER, SELFPAY ==
[2022-12-01] VITALS (11 sets, daily range): BP systolic 149–183; BP diastolic 68–95; PULSE 52–75; RESP 16–19; TEMP 36.2–36.6; O2SAT 97–100; BMI 20.7
[2022-12-01] MEDS: sodium chloride 0.9% 1,000 ML 30 ML IV (10:23)
--- NOTE | 2022-12-01 10:48 | W.PM.OPSUD ---
Surgery/Procedure H&P Update DATE OF PROCEDURE: December 01, 2022 DATE H&P PERFORMED: 11/27/22 H&P UPDATE INFORMATION: I have reviewed H&P completed within last 30 days, I have examined patient prior to procedure and No changes to prior documentation PLANNED PROCEDURE: Operation Date: 12/01/22 10:45 Proposed Procedures p : 95802 - laproscopic repair of right sided recurrent inguinal hernia with mesh k40.91(Right) - Bobby Lundberg DO
[2022-12-01] MEDS: ceFAZolin 2,000 MG in sodium chloride 0.9% (plus) 50 ML 100 MG IV (11:00)
[2022-12-01] MEDS: lidocaine-epi 2% 20 mL INJ 10 ML INJECTION (11:00)
[2022-12-01] MEDS: tranexamic acid 1,000 mg/10mL SDV 1000 MG IV ×2 (11:40→12:30)
--- NOTE | 2022-12-01 12:28 | ANES.PREANE2 ---
Pre-Anesthetic Assessment Height/Weight: Height 1.93 m Weight 77.111 kg Temp Pulse Resp BP Pulse Ox O2 Del Method 97.7 F 74 16 150/83 97 Room Air 12/01/22 09:45 12/01/22 09:45 12/01/22 09:45 12/01/22 09:45 12/01/22 09:45 12/01/22 09:52 Operation Date: 12/01/22 10:45 Proposed Procedures p : [id number] - laproscopic repair of right sided recurrent inguinal hernia with mesh k40.91(Right) - Bobby Lundberg DO Familial anesthetic complications: none Was Beta Lorna taken within 24 hours: N/A Was Clonidine taken within 24 hours: N/A Last intake: Intake Last Liquid Date 11/30/22 Last Liquid Time 21:00 Last Solid Date 11/30/22 Last Solid Time 19:00 Social No alcohol and No tobacco Exam alert, oriented x 3, clear to auscultation bilaterally and regular rate & rhythm Airway Submandibular: within normal limits Cervical ROM: within normal limits Mallampati: Class II Dentition: full CV/HEM Anemia, Coronary Artery Disease (CABG), Hypertension and Peripheral Vascular Disease Chronic Renal Insufficiency Metabolic Hyperlipidemia and Thyroid Disease Neuropsych Neuropathy Anesthetic Plan ASA status: 3 Anesthesia: General Medications/Allergies Home Medications Medication Instructions Recorded Confirmed Last Taken Type aspirin 81 mg tablet,delayed 81 mg PO DAILY circulation #90 tabs 03/25/22 12/01/22 11/30/22 Rx release (Adult Low Dose Aspirin) atorvastatin 40 mg tablet 40 mg PO .hs dyslipidemia #90 tabs 03/25/22 12/01/22 11/29/22 Rx cetirizine 10 mg capsule (Zyrtec) 10 mg PO DAILY allergies #90 caps 03/25/22 12/01/22 11/30/22 Rx diphenhydramine HCl 50 mg capsule 50 mg PO .qhs PRN ALLERGIES #90 03/25/22 12/01/22 11/29/22 Rx caps levothyroxine 75 mcg tablet 75 mcg PO DAILY hypothyroid #90 03/25/22 12/01/22 12/01/22 Rx tabs niacin 1,000 mg tablet,extended 1,000 mg PO BID Low HDL #180 tabs 03/25/22 12/01/22 11/29/22 Rx release PROSTATE SUPPORT PO 1XD 04/10/22 11/27/22 11/29/22 History multivitamin 1 tab PO DAILY 04/10/22 12/01/22 11/29/22 History triamcinolone acetonide 0.1 % 1 applic topical BID #453.6 grams 05/29/22 12/01/22 11/17/22 Rx topical cream gabapentin 100 mg capsule 100 mg PO .COMPLEX #180 caps 10/17/22 12/01/22 11/29/22 Rx Allergies Allergy/AdvReac Type Severity Reaction Status Date / Time latex Allergy ALGY-Rash Verified 11/27/22 13:49 Current Medications Generic Name Dose Route Start Last Admin Trade Name Freq PRN Reason Stop Dose Admin Sodium Chloride 1,000 mls @ 30 mls/hr 12/01/22 10:00 12/01/22 10:23 Sodium Chloride 0.9% IV 12/02/22 09:59 30 mls/hr .Q24H JÚNIOR Administration PFSH Anesthesia Medical History (Updated 11/27/22 @ 14:24 by Bobby Lundberg DO) Allergic rhinitis due to allergen Anemia Bilateral inguinal hernia Carpal tunnel syndrome Carpal tunnel syndrome, right Central apnea Central sleep apnea Chest pain Chronic left shoulder pain Chronic right shoulder pain CKD (chronic kidney disease) Coronary artery disease MICHAEL (dyspnea on exertion) Dyslipidemia Foot drop, left Hemorrhoids History of 2019 novel coronavirus disease (COVID-19) HTN (hypertension) with goal to be determined Hypothyroidism (acquired) Mitral valve prolapse Nephrolithiasis Neuropathy PAD (peripheral artery disease) Prediabetes Surgical History (Updated 11/27/22 @ 14:24 by Bobby Lundberg DO) H/O esophagogastroduodenoscopy (08/19/20) H/O hernia repair H/O knee surgery History of arthroscopic surgery of shoulder History of shoulder surgery Hx of CABG S/P triple vessel bypass S/P ureteral stent placement Status post colonoscopy (08/19/20) Family History Father , AT AGE 73 Family history of premature coronary artery disease Heart disease Mother Alzheimer disease Hypertension Social History Smoking and tobacco status: never smoked Alcohol intake: never Substance/Drug Use: never Marital status: Current occupational status: employed Data Anesthesia Cardiac Studies: Echocardiogram 06/12/22 Echocardiogram Ultrasound 05/20/20 Sestamibi Stress Test (Cardiology) 08/29/21
--- NOTE | 2022-12-01 12:47 | PC.NURSE ---
Pt arrived to PACU, awake, resting comfortably, pt denies any pain or nausea at this time. Dermabond to abdomen C/D/I.
--- NOTE | 2022-12-01 13:35 | SUR.PHASEII ---
warm blankets applied. PO fluids given.
--- NOTE | 2022-12-01 13:39 | PM.OP ---
Operative Report Date of procedure: December 01, 2022 Pre-op diagnosis: Recurrent right inguinal hernia Post-op diagnosis: Bilateral recurrent inguinal hernias Procedure done: Laparoscopic (TEPP) repair of recurrent bilateral inguinal hernias with mesh Implants: Left and right extra-large 3D max Bard meshes Specimens removed/disposition: None Surgeon: Dr. Bobby Lundberg DO Anesthesia: General Estimated blood loss (mL): 5 Complications: None apparent Brief History: This is a very pleasant 67-year-old gentleman who presented to my office with a recurrent right inguinal hernia. He had a laparoscopic (PITA) bilateral repair of direct inguinal hernias 9 months ago. Laparoscopic repair of recurrent right inguinal hernia with mesh, possible bilateral was indicated. The risk and benefits were explained and documented. Procedure: Patient was wheeled into the operative room and placed on the OR table in a supine position. Abdomen was inspected prepped and draped in usual sterile fashion. Time-out was performed and all present were in agreement. A 15 blade scalpel was used to make 1.2 centimeter incision infraumbilically. Combination of sharp and blunt dissection was performed down to the anterior rectus sheath which was opened sharply. The dissecting balloon was then inserted into the space of Retzius and blown up. We put the camera into the port and identified that we were in the correct space. I then placed 2 5 millimeter trocars suprapubically in the midline. I then used endokitners to bluntly dissect in the space of Retzius out laterally. Dissection was performed meticulously and there was significant scarring from the previous repair and the already present mesh. This was true of both sides. A direct inguinal hernia was identified on the right. Blunt dissection was performed to dissect down the hernia sac until the vas deferens dove medially. An extra-large right inguinal mesh was then placed into the space of Retzius. The mesh was unrolled and tacked once medially at the pubic bone. The mesh laid out nicely over the spermatic cord. A direct inguinal hernia was identified on the left. Blunt dissection was performed to dissect down the hernia sac until the vas deferens dove medially. An extra-large left inguinal mesh was then placed into the space of Retzius. The mesh was unrolled and tacked once medially at the pubic bone. The mesh laid out nicely over the spermatic cord. I watched the hernia sacs remain in place as insufflation was removed. Incisions were closed with 4 O Vicryl in a subcuticular interrupted fashion. Skin glue was applied. Patient tolerated the procedure well.
--- NOTE | 2022-12-01 14:10 | ANE.PACU2 ---
Inpatient post-anesthesia follow up: Airway intact: Yes Vital signs: Temperature 97.6 F Pulse Rate 67 Respiratory Rate 16 Blood Pressure 154/80 Pulse Oximetry 98 Oxygen Delivery Me thod Room Air Oxygen Flow Rate Fraction of Inspir ed Oxygen Hydration adequate: Yes Nausea and vomiting: No Pain level: 3 Mental status: Baseline
== END 2022-12-01 14:25 | disposition home or self-care (01) ==
PROVIDERS: PCP Family Medicine; Visit Provider Surgery
PROC: (CPT 49650; principal; 2022-12-01 10:45)
DX: K40.21 Bilateral inguinal hernia, without obstruction or gangrene, recurrent (principal); I25.10 Atherosclerotic heart disease of native coronary artery without angina pectoris; Z95.1 Presence of aortocoronary bypass graft; I73.9 Peripheral vascular disease, unspecified; I12.9 Hypertensive chronic kidney disease with stage 1 through stage 4 chronic kidney disease, or unspecified chronic kidney disease; N18.9 Chronic kidney disease, unspecified; E78.5 Hyperlipidemia, unspecified; E03.9 Hypothyroidism, unspecified; G62.9 Polyneuropathy, unspecified; Z79.82 Long term (current) use of aspirin
CPT/HCPCS: 49651; 51702; C1781; J0690; J1100; J1200; J2405; J2704; J2710; J3010; J3490; J7030

== ENCOUNTER 2023-01-03 20:00 | Outpatient (CLI) | payer OTHER, SELFPAY | END 2023-01-03 20:01 | disposition home or self-care (01) | LOC: SLEEP 01-04 03:41 | PROVIDERS: PCP Family Medicine; Visit Provider Specialist | DX: G47.10 Hypersomnia, unspecified (principal); G47.33 Obstructive sleep apnea (adult) (pediatric) | CPT/HCPCS: 95810 ==

== ENCOUNTER 2023-01-19 06:27 | Outpatient (CLI) | payer OTHER, SELFPAY ==
--- NOTE | 2023-01-19 07:15 | MR_ITS ---
WS: [id number] MRI LUMBAR SPINE NONCONTRAST HISTORY: M54.50 - Low back pain, unspecified COMPARISON: MRI sacrum 11/27/2022 TECHNIQUE: Sagittal and axial multisequence imaging is submitted. There is slight straightening of the normal lumbar lordosis. Mild disc desiccation. No marrow edema o r fracture. Conus terminates normally at L1-2 disc level. L1-L2: Normal. L2-L3: Moderate bilateral ligamentum flavum and facet arthritis. Mild disc bulging. Small thecal sac. There is significant encroachment and narrowing of the subarticular recesses. Moderate central, bila teral subarticular recess and foraminal stenosis. Significant encroachment upon the L2 and L3 nerve r oots bilaterally. L3-L4: Diffuse annular disc bulging with a left foraminal disc protrusion. Moderate bilateral ligamen jesus flavum hypertrophy and facet arthritis. Significant encroachment upon the thecal sac and subartic ular recesses. Moderate to severe central, bilateral subarticular recess and moderate foraminal steno sis. Significant encroachment upon the L3 and L4 nerve roots. L4-L5: Diffuse annular disc bulging with marked ligamentum flavum and mild facet hypertrophy. Tiny ce ntral disc protrusion also noted. Severe central, bilateral subarticular recess and foraminal stenosi s. Greater stenosis involving the left foramen. Significant encroachment and contact on the L4 and L5 nerve roots. L5-S1: Bilateral facet arthritis. No high-grade stenosis. IMPRESSION: 1. L2-3: Moderate central, bilateral subarticular recess and foraminal stenosis. Encroachment upon th e L2 and L3 nerve roots bilaterally. 2. L3-4: Moderate to severe central, bilateral subarticular recess and moderate foraminal stenosis. S ignificant encroachment upon the L3 and L4 nerve roots. 3. L4-5: Severe central, bilateral subarticular recess and foraminal stenosis. Greater stenosis left foramen. Significant encroachment upon the L4 and L5 nerve roots.
== END 2023-01-19 06:28 | disposition home or self-care (01) ==
LOC: RAD 06:28
PROVIDERS: PCP Family Medicine; Visit Provider Specialist
DX: M54.50 Low back pain, unspecified (principal); M21.372 Foot drop, left foot; G62.82 Radiation-induced polyneuropathy; M48.061 Spinal stenosis, lumbar region without neurogenic claudication
CPT/HCPCS: 72148

== ENCOUNTER → 2023-02-20 07:47 | Outpatient (BNVA) | payer SELFPAY | PROVIDERS: PCP Family Medicine; Visit Provider Dermatology | DX: E78.5 Hyperlipidemia, unspecified (principal); Z01.89 Encounter for other specified special examinations ==

== ENCOUNTER 2023-07-17 07:49 | Observation (INO) | payer OTHER, SELFPAY ==
[2023-07-17] VITALS (119 sets, daily range): BP systolic 127–194; BP diastolic 72–117; PULSE 56–83; RESP 0–30; TEMP 36.4–36.8; O2SAT 93–99; BMI 3436.8
--- NOTE | 2023-07-17 07:55 | XR_ITS ---
WS: [id number] XR chest 1V portable [id number] REASON FOR EXAM: Chest pain FINDINGS: Chest is unchanged compared to 06/12/2022. Status post coronary artery bypass surgery Calcified granulomatous disease in both hemithoraces. No acute or subacute pulmonary parenchymal or pleural abnormality. The bony thorax is intact. IMPRESSION: Stable chest with no acute abnormality.
--- NOTE | 2023-07-17 08:03 | ED_ITS ---
HPI - Chest Pain 2 General: Chief Complaint: Chest Pain Stated Complaint: chest pains Time Seen by Provider: 07/17/23 07:55 Source: patient Mode of arrival: ambulatory History of Present Illness: 67-year-old male with a known history of coronary disease previous bypass in July 2020 done in [place]. He had abnormal angiography prior to that. He has done well since then. He has some aortic valve stenosis noted on previous echo which is also noted on exam today. Last couple of days he has been having chest discomfort while at rest does not radiate into the neck or back he describes it as a bubble like sensation in his chest he has a history of hiatal hernia which is mild he did take some pantoprazole for it his symptoms with no significant relief he does take a baby aspirin daily no antihypertensives or other antiplatelet therapy. MD complaint: chest pain Pertinent past history: coronary artery disease and CABG Onset (ago): day(s) Timing of current episode: episodic and still present Onset: during rest Pain location: substernal Pain radiation: none Severity: mild Quality: tightness and aching Relieving factors: nothing Exacerbating factors: nothing Associated symptoms: Deny abdominal pain, diaphoresis, dyspnea, fever(s), leg edema, nausea, palpitations, sense of impending doom, syncope or vomiting Treatment prior to arrival: none Review of Systems 2 Const: Denies: fever(s) or diaphoresis Card: Denies: palpitations or syncope Resp: Denies: dyspnea GI: Denies: abdominal pain, nausea or vomiting : Denies: dysuria, urinary frequency or urinary urgency Musc: Denies: neck pain or back pain Skin/Breast: Denies: rash PFSH ED 2 PFSH: Medical History Allergic rhinitis due to allergen Central sleep apnea Bilateral inguinal hernia Foot drop, left Chronic right shoulder pain PAD (peripheral artery disease) MICHAEL (dyspnea on exertion) Prediabetes Chest pain Dyslipidemia Neuropathy Nephrolithiasis Carpal tunnel syndrome CKD (chronic kidney disease) Anemia HTN (hypertension) with goal to be determined Carpal tunnel syndrome, right History of 2019 novel coronavirus disease (COVID-19) Hypothyroidism (acquired) Coronary artery disease Central apnea Hemorrhoids Mitral valve prolapse Chronic left shoulder pain Surgical History Hx of inguinal hernia repair 12/01/22 recurrent right inguinal repair with mesh- Dr. Lundberg S/P ureteral stent placement H/O hernia repair S/P triple vessel bypass History of arthroscopic surgery of shoulder Status post colonoscopy (08/19/20) H/O esophagogastroduodenoscopy (08/19/20) Hx of CABG History of shoulder surgery H/O knee surgery Family History Father , AT AGE 73 Family history of premature coronary artery disease Heart disease Mother Alzheimer disease Hypertension Social History Smoking and tobacco/nicotine status: never used tobacco/nicotine Alcohol intake: never Substance/Drug Use: never Marital status: Current occupational status: employed Physical Exam 2 Const: GENERAL APPEARANCE: cooperative and comfortable O RIENTATION/CONSCIOUSNESS: Yes awake, Yes oriented to person, Yes oriented to place and Yes oriented to time HENMT: COMMON NORMALS: normocephalic, atraumatic and hearing grossly normal bilaterally HEAD & SCALP: normocephalic and atraumatic Resp: COMMON NORMALS: normal respiratory effort, No retractions, No use of accessory muscles and clear to auscultation bilaterally AUSCULTATION: clear to auscultation bilaterally Cardio: COMMON NORMALS: regular rate and regular rhythm RATE: regular rate RHYTHM: regular rhythm HEART SOUNDS: Murmur heart sound present (Grade 3/6 diastolic murmur best heard at the right upper sternal border) GI: COMMON NORMALS: Soft to palpation and No hepatosplenomegaly present A USCULTATION: Yes normoactive bowel sounds PALPATION: Yes Soft to palpation, No Tenderness to palpation present (GI), No Guarding due to palpation present (GI) and Yes No hepatosplenomegaly present Extremity: COMMON NORMALS: normal to inspection, capillary refill normal, no clubbing, cyanosis or edema, no calf tenderness and no pedal edema Neuro: SENSORIUM/ORIENTATION: Yes oriented to person, Yes oriented to place and Yes oriented to time Skin: COMMON NORMALS: no rashes or lesions noted GENERAL SKIN EXAM: no rashes or lesions noted Course 2 Vital Signs: Vital signs: Vital Signs Temperature 98.3 F 07/17/23 07:55 Pulse Rate 83 07/17/23 08:14 Respiratory Rate 16 07/17/23 07:55 Blood Pressure 194/111 07/17/23 08:14 Pulse Oximetry 99 07/17/23 07:55 Oxygen Delivery Me thod Room Air 07/17/23 07:55 MDM - Chest Pain Medical Decision Making Initial EKG does not show any acute ST elevation but does show ST depression particularly in V45 and 6 compared to previous EKGs done at stress test after his bypass. There is also very subtle ST depression in 1 and aVL. The lateral depressions on only had about 1 mm. Patient was treated with nitro which improved his chest pain and in his blood pressure. His first troponin is 19 he was given Lovenox as well. We are working on getting old records from his bypass in [place]. He has not been on any beta-lynn or LISETH inhibitor or statin he has been continue to take an aspirin daily. Given his EKG changes and his history of heart disease we will admit for unstable angina discussed with hospitalist also consult cardiology. Patient was given p.o. metoprolol tartrate 12.5 mg as well as atorvastatin 40 mg. He was given baby aspirin on arrival 324 mg. Medical Records I reviewed the patient's medical records. Lab Data I reviewed the patient's lab results. 07/17/23 08:08 07/17/23 08:08 Laboratory Results WBC 5.51 10^3/uL (3.29-11.43) 07/17/23 08:08 RBC 4.42 10^6/uL (3.85-5.65) 07/17/23 08:08 Hgb 13.60 g/dL (11.27-16.99) 07/17/23 08:08 Hct 40.2 % (37-53) 07/17/23 08:08 MCV 91.0 fl (82-101) 07/17/23 08:08 MCH 30.8 pg (27-33) 07/17/23 08:08 MCHC 33.8 g/dL (30-55) 07/17/23 08:08 RDW 13.1 % (12.1-15.1) 07/17/23 08:08 Plt Count 219 10^3/cmm (157-399) 07/17/23 08:08 MPV 10.1 fL (7.4-10.4) 07/17/23 08:08 Neut % (Auto) 58.5 % 07/17/23 08:08 Lymph % (Auto) 28.3 % 07/17/23 08:08 Finney % (Auto) 10.3 % 07/17/23 08:08 Eos % (Auto) 2.2 % 07/17/23 08:08 Baso % (Auto) 0.5 % 07/17/23 08:08 Neut # (Auto) 3.22 10^3/uL (1.8-7.7) 07/17/23 08:08 Lymph # (Auto) 1.6 10^3/uL (0.8-4.8) 07/17/23 08:08 Finney # (Auto) 0.6 10^3/uL (0.2-0.9) 07/17/23 08:08 Eos # (Auto) 0.1 10^3/uL (0.0-0.8) 07/17/23 08:08 Baso # (Auto) 0.0 10^3/uL (0.0-0.1) 07/17/23 08:08 Nucleated RBC % (auto) 0 % 07/17/23 08:08 Nucleated RBCs # 0.0 /100WBC 07/17/23 08:08 Sodium 138 mmol/L (136-145) 07/17/23 08:08 Potassium 3.4 mmol/L (3.5-5.1) L 07/17/23 08:08 Chloride 100 mmol/L (98-107) 07/17/23 08:08 Carbon Dioxide 27 mmol/L (22-29) 07/17/23 08:08 Anion Gap 14.4 (5-19) 07/17/23 08:08 BUN 14 mg/dL (8-23) 07/17/23 08:08 Creatinine 1.3 mg/dL (0.7-1.2) H 07/17/23 08:08 GFR Calculation 55.2 mL/min (90-130) L 07/17/23 08:08 Glucose 123 mg/dL (65-115) H 07/17/23 08:08 Calculated Osmolality 288 mOsm/kg (285-295) 07/17/23 08:08 Calcium 9.9 mg/dL (8.5-10.5) 07/17/23 08:08 Total Bilirubin 0.4 mg/dL (0.15-1.2) 07/17/23 08:08 AST 18 U/L (0-40) 07/17/23 08:08 ALT 11 U/L (0-41) 07/17/23 08:08 Alkaline Phosphatase 92 U/L (40-130) 07/17/23 08:08 Troponin T Baseline 19 ng/L (0-15) H 07/17/23 08:08 Total Protein 6.7 g/dL (6.6-8.7) 07/17/23 08:08 Albumin 4.3 g/dL (3.5-5.2) 07/17/23 08:08 Globulin 2.4 g/dL (1.3-4.6) 07/17/23 08:08 All radiology interpretation(s) finalized by discharge Other Data I personally reviewed and interpreted the following: Discharge Plan Discharge Admit Provider: Coy Olson Condition: Stable Prescriptions: No Action multivitamin Tablet 1 tab PO DAILY acetaminophen [Tylenol Extra Strength] 500 mg tablet 500 mg PO Q6H PRN (Reason: Pain) aspirin [Adult Low Dose Aspirin] 81 mg tablet,delayed release (DR/EC) 81 mg PO DAILY Qty: 90 3RF Hold Instructions: Resume on 03/03/22. Zyrtec 10 mg capsule 10 mg PO DAILY Qty: 90 3RF levothyroxine 75 mcg tablet 75 mcg PO DAILY Qty: 90 3RF diphenhydramine HCl 50 mg capsule 50 mg PO QPM PRN (Reason: ALLERGIES) niacin 1,000 mg tablet extended release 1,000 mg PO DAILY magnesium 200 mg Tablet 200 mg PO EVERY OTHER DAY Coding Level of Care Code ED Customer Experience Analyst for Mary Alvarado
[2023-07-17] MEDS: aspirin 81 mg Chew Tablet 324 MG PO (08:13)
[2023-07-17] MEDS: nitroglycerin 1 gm/inch oint Pkt 1 INCH TOPICAL (08:14)
[2023-07-17 08:23] LABS: Basophils % 0.5 %; Eosinophils # 0.1 10^3/uL (0.0-0.8); Eosinophils % 2.2 %; Hematocrit 40.2 % (37-53); Lymphocytes # 1.6 10^3/uL (0.8-4.8); Lymphocytes % 28.3 %; Mean Corpuscular HGB Conc 33.8 g/dL (30-55); Mean Corpuscular Hemoglobin 30.8 pg (27-33); Mean Platelet Volume 10.1 fL (7.4-10.4); Monocytes # 0.6 10^3/uL (0.2-0.9); Monocytes % 10.3 %; Neutrophils # 3.22 10^3/uL (1.8-7.7); Neutrophils % 58.5 %; Nucleated Red Blood Cells % 0 %; Platelet Count 219 10^3/cmm (157-399); Red Blood Count 4.42 10^6/uL (3.85-5.65); Red Cell Distribution Width 13.1 % (12.1-15.1); White Blood Count 5.51 10^3/uL (3.29-11.43)
[2023-07-17 08:35] LABS: Troponin(5th) Baseline 19 ng/L (0-15)
[2023-07-17 08:38] LABS: Alanine Aminotransferase 11 U/L (0-41); Albumin Level 4.3 g/dL (3.5-5.2); Alkaline Phosphatase 92 U/L (40-130); Anion Gap 14.4 (5-19); Aspartate Amino Transferase 18 U/L (0-40); Blood Urea Nitrogen 14 mg/dL (8-23); Calcium 9.9 mg/dL (8.5-10.5); Carbon Dioxide 27 mmol/L (22-29); Chloride 100 mmol/L (98-107); Globulin 2.4 g/dL (1.3-4.6); Glomerular Filtration Rate 55.2 mL/min (90-130); Glucose 123 mg/dL (65-115); Osmolality Calculated 288 mOsm/kg (285-295); Potassium 3.4 mmol/L (3.5-5.1); Sodium 138 mmol/L (136-145); Total Bilirubin 0.4 mg/dL (0.15-1.2); Total Protein 6.7 g/dL (6.6-8.7)
--- NOTE | 2023-07-17 08:46 | ECG_ITS ---
[facility] Test Date: 2023-07-17 Pat Name: Chris Ulloa Department: Room: Gender: Male Historical Society Director: : 1955 Requested By: Dakotah Miller Order Number: [id number] Zeynep MD: Flaco Lehman M.D. Measurements Intervals [place] Rate: 75 P: 78 CO: 184 QRS: 36 QRSD: 87 T: 47 QT: 388 QTc: 434 Interpretive Statements SINUS RHYTHM POSSIBLE RIGHT VENTRICULAR CONDUCTION DELAY [RSR (QR) IN V1/V2] No previous ECG available for comparison Electronically Signed On 07-17-2023 9:56:19 TACTICAL DEBRIEFER by Flaco Lehman M.D. [id number]
--- NOTE | 2023-07-17 10:10 | ECG_ITS ---
[facility] Test Date: 2023-07-17 Pat Name: Chris Ulloa Department: Room: Gender: Male [employer]: : 1955 Requested By: Dakotah Miller Order Number: [id number] Zeynep MD: Flaco Lehman M.D. Measurements Intervals [place] Rate: 62 P: 64 [place]: 211 QRS: 38 QRSD: 83 T: 55 QT: 405 QTc: 414 Interpretive Statements SINUS RHYTHM WITH FIRST DEGREE AV BLOCK POSSIBLE RIGHT VENTRICULAR CONDUCTION DELAY [RSR (QR) IN V1/V2] Compared to ECG 07/17/2023 08:46:03 First degree AV block now present Electronically Signed On 07-17-2023 10:20:46 CONTAINER MAKER by Flaco Lehman M.D. [id number]
--- NOTE | 2023-07-17 10:10 | PM.HP ---
Providers/Chief Complaint Admitting Physician: Coy Olson MD Primary Care Provider: Benita Urias DO Chief Complaint: chest pains History of Present Illness Chris Ulloa is a 67 year old male presenting to the emergency department with complaints of chest discomfort, pressure, substernal without radiation has been going on since yesterday afternoon. He states he thought it might be indigestion/hiatal hernia at first as it felt initially like a bubble in his chest. He had had no preceding exertional symptoms. With the discomfort he did have some nausea but no vomiting. He has not been sick recently with any shortness of breath. He does take aspirin, and thyroid hormone but about a year ago stopped taking beta-lynn and statin. He reports the discomfort has been rather steady, even at rest and with nitroglycerin ointment that was placed on it has not seemed to make much difference. He has noticed less energy the last several months, and has had some exertional shortness of breath, ever since his bypass surgery in 1999. It is hard to tell if that is significantly different. He has not had any coronary intervention since his CABG at [facility] in 2020. Last nuclear stress test was August 2021, which showed no reversible ischemia. In the emergency department he was given nitroglycerin topically, and aspirin, therapeutic Lovenox. I also visited with the emergency department regarding initiation of low-dose metoprolol, and statin. Review of Systems General: Reports: 10 or more systems reviewed and unremarkable except in HPI and below Card: Reports: chest pain; Denies: palpitations or swelling of feet/ankles Resp: Reports: dyspnea; Denies: productive cough or non-productive cough GI: Reports: nausea; Denies: abdominal pain, vomiting, hematochezia or melena Medications/Allergies Home Medications Medication Instructions Recorded Confirmed Last Taken Type aspirin 81 mg tablet,delayed 81 mg PO DAILY circulation #90 tabs 03/25/22 07/17/23 07/17/23 Rx release (Adult Low Dose Aspirin) cetirizine 10 mg capsule (Zyrtec) 10 mg PO DAILY allergies #90 caps 03/25/22 07/17/23 11/30/22 Rx multivitamin 1 tab PO DAILY 04/10/22 07/17/23 11/29/22 History acetaminophen 500 mg tablet 500 mg PO Q6H PRN Pain 12/19/22 07/17/23 Unknown History (Tylenol Extra Strength) levothyroxine 75 mcg tablet 75 mcg PO DAILY hypothyroid #90 02/21/23 07/17/23 07/17/23 Rx tabs diphenhydramine HCl 50 mg capsule 50 mg PO QPM PRN ALLERGIES 07/17/23 07/17/23 Unknown History magnesium 200 mg tablet 200 mg PO EVERY OTHER DAY 07/17/23 07/17/23 Unknown History niacin 1,000 mg tablet,extended 1,000 mg PO DAILY Low HDL 07/17/23 07/17/23 Unknown History release Allergies Allergy/AdvReac Type Severity Reaction Status Date / Time latex Allergy ALGY-Rash Verified 07/17/23 09:18 PFSH Acute PFSH: Medical History Allergic rhinitis due to allergen Central sleep apnea Bilateral inguinal hernia Foot drop, left Chronic right shoulder pain PAD (peripheral artery disease) MICHAEL (dyspnea on exertion) Prediabetes Chest pain Dyslipidemia Neuropathy Nephrolithiasis Carpal tunnel syndrome CKD (chronic kidney disease) Anemia HTN (hypertension) with goal to be determined Carpal tunnel syndrome, right History of 2019 novel coronavirus disease (COVID-19) Hypothyroidism (acquired) Coronary artery disease Central apnea Hemorrhoids Mitral valve prolapse Chronic left shoulder pain Surgical History Hx of inguinal hernia repair 12/01/22 recurrent right inguinal repair with mesh- Dr. Lundberg S/P ureteral stent placement H/O hernia repair S/P triple vessel bypass History of arthroscopic surgery of shoulder Status post colonoscopy (08/19/20) H/O esophagogastroduodenoscopy (08/19/20) Hx of CABG History of shoulder surgery H/O knee surgery Family History Father , AT AGE 73 Family history of premature coronary artery disease Heart disease Mother Alzheimer disease Hypertension Social History Smoking and tobacco/nicotine status: never used tobacco/nicotine Alcohol intake: never Substance/Drug Use: never Marital status: Current occupational status: employed Vitals/I&O/Wt Last Vital Signs Temp 98.3 F 07/17/23 07:55 Pulse 83 07/17/23 08:14 Resp 16 07/17/23 07:55 BP 194/111 07/17/23 08:14 Pulse Ox 99 07/17/23 07:55 O2 Del Method Room Air 07/17/23 07:55 Physical Exam Narrative: General exam is a white male, no distress, conversant and pleasant. HEENT: Pupils equally round. Oropharynx not examined. Neck is supple no lymphadenopathy thyromegaly Cardiovascular regular rate and rhythm with a soft 2/6 systolic murmur Back without any type of rash Lungs clear Abdomen is soft, no obvious organomegaly exam was deferred Extremities no cyanosis clubbing or edema, pulses are palpable Skin no rash Neuro no obvious focal deficits Data 07/17/23 08:08 07/17/23 08:08 Other Labs: Last echo September 2022 demonstrated mild aortic stenosis, mild aortic regurgitation I have ordered a TSH, and magnesium level LFTs normal Troponin 19 with repeat pending calcium and albumin are normal I have ordered a hemoglobin A1c it has been borderline in the past. EKG per my review demonstrates a sinus rhythm, normal axis, subtle ST depression V5, V6 that appears different from prior EKG done with nuclear stress test. Chest x-ray per my review no infiltrate A&P Assessment and plan (1) Chest pain: Patient presents with chest discomfort. He has a past history of coronary disease. Troponin is elevated Concern is this could represent a non-ST myocardial infarction Fully anticoagulated Aspirin initiated Cardiology consultation Initiate low-dose beta-lynn, statin Monitor blood pressure. He was significantly elevated on arrival to the emergency department but indicates his blood pressure has been normal previous to this and he had been Able to come off medications. Consider addition of ARB if this remains high Nitroglycerin ointment will be continued currently. Protonix 40 mg daily Qualifiers: Chest pain type: unspecified Qualified Code(s): R07.9 - Chest pain, unspecified (2) Coronary artery disease: See above Qualifiers: Coronary Disease-Associated Artery/Lesion type: [place] artery [place] vs. transplanted heart: [place] heart Associated angina: with unspecified angina Qualified Code(s): I25.119 - Atherosclerotic heart disease of [place] coronary artery with unspecified angina pectoris (3) Hypothyroidism (acquired): Check TSH (4) Prediabetes: Check hemoglobin A1c (5) Hypokalemia: Supplement, check magnesium (6) CKD (chronic kidney disease): avoid renal toxic medication CBC, BMP tomorrow Plan Multiple other medical problems as outlined in past medical history Full code Lovenox will suffice for DVT prophylaxis Attestations Medical Necessity Statement*: Will require less than 2 midnight stay for evaluation and treatment of chest discomfort. Diagnoses Chest pain, unspecified type R07.9 Chest pain type: unspecified Coronary artery disease involving [place] coronary artery of [place] heart with angina pectoris I25.119 Coronary Disease-Associated Artery/Lesion type: [place] artery [place] vs. transplanted heart: [place] heart Associated angina: with unspecified angina Hypothyroidism (acquired) E03.9 Prediabetes R73.03 Hypokalemia E87.6 CKD (chronic kidney disease) N18.9 Time Spent (min) 40
[2023-07-17] MEDS: enoxaparin 100 mg/mL Syringe 90 MG SUBCUT ×2 (10:16→21:44)
[2023-07-17] MEDS: atorvastatin 40 mg Tablet PO (10:16)
[2023-07-17] MEDS: metoprolol tartrate 25 mg Tablet 12.5 MG PO (10:16)
[2023-07-17 10:36] LABS: Estmated Average Glucose 108; Hemoglobin A1C 5.4 % (4.0-6.0)
[2023-07-17] MEDS: potassium chloride ER 20 mEq Tablet 40 MEQ PO (10:40)
[2023-07-17 10:46] LABS: Troponin 5 2HR 18.28 ng/L (0-15)
[2023-07-17 10:52] LABS: Troponin 5 2HR Delta -0.72 ABS# (0-10)
[2023-07-17 10:56] LABS: Magnesium 1.9 mg/dL (1.7-2.3); Thyroid Stimulating Hormone 2.21 uIU/mL (0.27-4.20)
--- NOTE | 2023-07-17 13:55 | ECG_ITS ---
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 Measurements Intervals [place] Rate: 84 P: 87 [place]: 206 QRS: 66 QRSD: 85 T: 61 QT: 340 QTc: 403 Interpretive Statements SINUS RHYTHM POSSIBLE LEFT ATRIAL ENLARGEMENT [-0.1mV P-WAVE IN V1/V2] POSSIBLE RIGHT VENTRICULAR CONDUCTION DELAY [RSR (QR) IN V1/V2] MODERATE ST DEPRESSION [0.05+ mV ST DEPRESSION] No previous ECG available for comparison Electronically Signed On 07-17-2023 11:11:18 FIRMWARE DEVELOPER by Flaco Lehman M.D. [id number]
[2023-07-17 14:37] LABS: Troponin 5 6HR 18.06 ng/L (0-15)
[2023-07-17 14:38] LABS: Troponin 5 6HR Delta -0.94 ng/L (0-12)
[2023-07-17] MEDS: nitroglycerin 1 gm/inch oint Pkt 0.5 INCH TOPICAL ×2 (15:05→19:46)
--- NOTE | 2023-07-17 15:35 | P.CONIM_ITS ---
Providers/Reason For Consult 2 Consulting Physician/Specialty*: Cardiovascular medicine Reason for Consult*: Chest discomfort Requesting Physician: Carlee Attending Physician: Coy Olson MD Primary Care Provider: Benita Urias DO History of Present Illness History of Present Illness Chris Ulloa is a 67 year old male who entered the hospital with discomfort in his chest. He has coronary artery disease and had bypass surgery at [facility] in June 2020. I believe he had three-vessel surgery however we do not have the bypass surgery report. He also has a history of central sleep apnea, peripheral disease, glucose intolerance, dyslipidemia, chronic kidney disease, anemia, hypertension, peripheral neuropathy. He is not a smoker. 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 Over time he has been seen by our physicians here. In August 2021, about 1 year after surgery, he had a sestamibi exam which was normal. He had an echo a year ago which was normal. He came into the emergency room from his office after having about 12 hours worth of a full sensation in his chest. He stated that when he tried to swallow he felt like things would not move down and he had a fullness or heavy sensation in his chest. Upon his arrival to the emergency room his EKGs are normal. His troponins are 19, 18 and 18. His glomerular filtration rate is 55. He is free of pain now. Review of Systems 2 Narrative: Review of systems is negative Medications/Allergies Home Medications Medication Instructions Recorded Confirmed Last Taken Type aspirin 81 mg tablet,delayed 81 mg PO DAILY circulation #90 tabs 03/25/22 07/17/23 07/17/23 Rx release (Adult Low Dose Aspirin) cetirizine 10 mg capsule (Zyrtec) 10 mg PO DAILY allergies #90 caps 03/25/22 07/17/23 11/30/22 Rx multivitamin 1 tab PO DAILY 04/10/22 07/17/23 11/29/22 History acetaminophen 500 mg tablet 500 mg PO Q6H PRN Pain 12/19/22 07/17/23 Unknown History (Tylenol Extra Strength) levothyroxine 75 mcg tablet 75 mcg PO DAILY hypothyroid #90 02/21/23 07/17/23 07/17/23 Rx tabs diphenhydramine HCl 50 mg capsule 50 mg PO QPM PRN ALLERGIES 07/17/23 07/17/23 Unknown History magnesium 200 mg tablet 200 mg PO EVERY OTHER DAY 07/17/23 07/17/23 Unknown History niacin 1,000 mg tablet,extended 1,000 mg PO DAILY Low HDL 07/17/23 07/17/23 Unknown History release Allergies Allergy/AdvReac Type Severity Reaction Status Date / Time latex Allergy ALGY-Rash Verified 07/17/23 09:18 Current Medications Generic Name Dose Route Start Last Admin Trade Name Freq PRN Reason Stop Dose Admin Nitroglycerin 0.5 inch 07/17/23 14:00 07/17/23 15:05 Nitroglycerin 1 Gm/Inch Oint Pkt TOPICAL 0.5 inch Q6H JÚNIOR Administration PFSH Acute 2 PFSH: Medical History Allergic rhinitis due to allergen Central sleep apnea Bilateral inguinal hernia Foot drop, left Chronic right shoulder pain PAD (peripheral artery disease) MICHAEL (dyspnea on exertion) Prediabetes Chest pain Dyslipidemia Neuropathy Nephrolithiasis Carpal tunnel syndrome CKD (chronic kidney disease) Anemia HTN (hypertension) with goal to be determined Carpal tunnel syndrome, right History of 2019 novel coronavirus disease (COVID-19) Hypothyroidism (acquired) Coronary artery disease Central apnea Hemorrhoids Mitral valve prolapse Chronic left shoulder pain Surgical History Hx of inguinal hernia repair 12/01/22 recurrent right inguinal repair with mesh- Dr. Lundberg S/P ureteral stent placement H/O hernia repair S/P triple vessel bypass History of arthroscopic surgery of shoulder Status post colonoscopy (08/19/20) H/O esophagogastroduodenoscopy (08/19/20) Hx of CABG History of shoulder surgery H/O knee surgery Family History Father , AT AGE 73 Family history of premature coronary artery disease Heart disease Mother Alzheimer disease Hypertension Social History Smoking and tobacco/nicotine status: never used tobacco/nicotine Alcohol intake: never Substance/Drug Use: never Marital status: Current occupational status: employed Vitals/I&O/Wt Last Vital Signs Temp 97.7 F 07/17/23 15:32 Pulse 67 07/17/23 15:32 Resp 18 07/17/23 15:32 BP 136/72 07/17/23 15:32 Pulse Ox 96 07/17/23 15:32 O2 Del Method Room Air 07/17/23 15:32 Weight last 48 hrs Weight 176 lb Physical Exam 2 Narrative: GENERAL: Generally looks and feels well HEENT: Exam within normal limits. NECK: Supple without jugular vein distention. The carotid upstroke is normal without bruits. BACK: Exam normal. LUNGS: Clear. HEART: Regular rate and rhythm. ABDOMEN: Benign without organomegaly or tenderness. EXTREMITIES: No edema. NEUROLOGIC: Exam normal. SKIN: Unremarkable. Data 07/17/23 08:08 07/17/23 08:08 A&P Assessment and plan (1) Coronary artery disease: Qualifiers: Coronary Disease-Associated Artery/Lesion type: [place] artery [place] vs. transplanted heart: [place] heart Associated angina: with unspecified angina Qualified Code(s): I25.119 - Atherosclerotic heart disease of [place] coronary artery with unspecified angina pectoris (2) Hx of CABG: (3) HTN (hypertension) with goal to be determined: (4) Dyslipidemia: (5) Chest pain: Qualifiers: Chest pain type: unspecified Qualified Code(s): R07.9 - Chest pain, unspecified (6) PAD (peripheral artery disease): (7) Prediabetes: (8) CKD (chronic kidney disease): (9) Anemia: Qualifiers: Anemia type: iron deficiency Iron deficiency anemia type: chronic blood loss Qualified Code(s): D50.0 - Iron deficiency anemia secondary to blood loss (chronic) Plan Will set him up for a exercise sestamibi tomorrow. Coronary angiography is not warranted at this time given his negative troponins, relatively atypical discomfort and his renal insufficiency. Hopefully we can compare it to the sestamibi he had in August 2021 and it will be normal. Follow-up after that. and Moderate Time for a total of 40 minutes, includes reviewing past or interval history, examining/interviewing patient, placing orders, counseling patient/family/other support, updating patient/family/other support, discussing plan of care with staff, communicating with other healthcare providers, documenting encounter and coordinating care Diagnoses Coronary artery disease involving [place] coronary artery of [place] heart with angina pectoris I25.119 Coronary Disease-Associated Artery/Lesion type: [place] artery [place] vs. transplanted heart: [place] heart Associated angina: with unspecified angina Hx of CABG Z95.1 HTN (hypertension) with goal to be determined I10 Dyslipidemia E78.5 Chest pain, unspecified type R07.9 Chest pain type: unspecified PAD (peripheral artery disease) I73.9 Prediabetes R73.03 CKD (chronic kidney disease) N18.9 Iron deficiency anemia due to chronic blood loss D50.0 Anemia type: iron deficiency Iron deficiency anemia type: chronic blood loss
--- NOTE | 2023-07-17 16:57 | PC.NURSE ---
admitted into room 105 at 1145 from er.report received.sr on monitor.denies chest pain at present.oriented to room environment.instructed to notifiy staff for any chest pain,sob,or for any concerns at all.pt verb understanding of instructions
[2023-07-17] MEDS: metoprolol tartrate 25 mg Tablet PO (19:46)
[2023-07-17] MEDS: diphenhydrAMINE 50 mg Capsule PO (19:46)
[2023-07-18] VITALS (112 sets, daily range): BP systolic 135–149; BP diastolic 73–81; PULSE 43–82; RESP 0–26; TEMP 36.6–36.9
[2023-07-18] MEDS: nitroglycerin 1 gm/inch oint Pkt 0.5 INCH TOPICAL ×2 (01:58→09:12)
[2023-07-18 04:00] LABS: Basophils % 0.6 %; Eosinophils # 0.1 10^3/uL (0.0-0.8); Eosinophils % 2.5 %; Hematocrit 38.7 % (37-53); Lymphocytes # 1.3 10^3/uL (0.8-4.8); Lymphocytes % 24.6 %; Mean Corpuscular HGB Conc 33.1 g/dL (30-55); Mean Corpuscular Hemoglobin 30.3 pg (27-33); Mean Corpuscular Volume 91.7 fl (82-101); Mean Platelet Volume 10.5 fL (7.4-10.4); Monocytes # 0.5 10^3/uL (0.2-0.9); Neutrophils # 3.17 10^3/uL (1.8-7.7); Neutrophils % 61.9 %; Nucleated Red Blood Cells % 0 %; Platelet Count 206 10^3/cmm (157-399); Red Blood Count 4.22 10^6/uL (3.85-5.65); Red Cell Distribution Width 13.5 % (12.1-15.1); White Blood Count 5.12 10^3/uL (3.29-11.43)
[2023-07-18 04:16] LABS: Alanine Aminotransferase 8 U/L (0-41); Albumin Level 3.8 g/dL (3.5-5.2); Alkaline Phosphatase 83 U/L (40-130); Anion Gap 13.9 (5-19); Aspartate Amino Transferase 17 U/L (0-40); Blood Urea Nitrogen 13 mg/dL (8-23); Calcium 9.1 mg/dL (8.5-10.5); Carbon Dioxide 25 mmol/L (22-29); Chloride 104 mmol/L (98-107); Globulin 2.7 g/dL (1.3-4.6); Glomerular Filtration Rate 60.6 mL/min (90-130); Glucose 102 mg/dL (65-115); Osmolality Calculated 288 mOsm/kg (285-295); Potassium 3.9 mmol/L (3.5-5.1); Sodium 139 mmol/L (136-145); Total Bilirubin 0.6 mg/dL (0.15-1.2); Total Protein 6.5 g/dL (6.6-8.7)
[2023-07-18 05:48] LABS: Glucose Point of Care 108 mg/dL (70-110)
--- NOTE | 2023-07-18 07:12 | ECG_ITS ---
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 Interpretive Statements NAME OF STUDY: LEXISCAN SESTAMIBI STRESS TEST INDICATION: [SOB/CP, ] Procedure: At the baseline, the blood pressure was 161/76 mmHg with a heart rate of 77 bpm. The electrocardiogram showed normal sinus rhythm, normal axis with normal ST and T's. The Lexiscan was infused over a period of 20 seconds. A total of 0.4 mg of Lexiscan was infused. The stress phase was continued for a total of 5 minutes. Heart rate was at the end of stress phase was 79 bpm and a blood pressure of 142/69 mmHg. The EKG at the peak infusion revealed normal sinus rhythm with no significant ST-T wave changes. Sestamibi was injected 20 seconds after the Lexiscan infusion. Blood pressure at the end of recovery phase was 135/73 mmHg with a heart rate of 83 bpm. Conclusion: 1. Normal EKG response to Lexiscan infusion 2. No Lexiscan induced chest pain or cardiac arrhythmia. 3. Normal blood pressure and heart rate response. 4. Sestamibi/sestamibi perfusion scan pending; see separate report. Electronically Signed On 08-03-2023 11:47:47 INSTRUCTOR HAIRSPRING by Flaco Lehman M.D. [email or web address]
[2023-07-18] MEDS: regadenoson 0.4 Mg/5 ml Syringe IVP (07:51)
--- NOTE | 2023-07-18 08:00 | NMCV_ITS ---
NM swathi perf SPECT r/s* [id number] Chris Ulloa Age: 67 Gender: M : 1955 Exam Date: 07/18/2023 06:40 Ordering Phys: Marques Guerrero MD ([email or web address]) Technologist: VENUS Andrade Exam Location: [facility] Indications: CHEST PAIN STRESS TEST Please see separate stress test report in [facility] for full findings IMAGE PROTOCOL Rest/Stress 1 Lexiscan Day Radiopharmaceutical Dose (mCi) Administration Site Administered by Rest: Tc-99m 10.5 IV VENUS Tse Sestamibi Stress:Tc-99m 32.8 IV VENUS Tse Sestamibi Rest: 18-Jul-2023 60 Discovery 630 Stress: 18-Jul-2023 30 Discovery 630 0.4mg Lexiscan. Images obtained in supine and prone position. SPECT RESULTS Technical Quality: Excellent Raw Data Analysis: Normal Image Corrections: No attenuation or motion correction applied Summed Stress Score: 1 Summed Rest Score: 0 Summed Difference Score: 1 PERFUSION FINDINGS SPECT images demonstrate homogeneous tracer distribution throughout the myocardium. FUNCTIONAL RESULTS (calculated via Gated SPECT) Stress Image LV EF (%): 67 Stress EDV (mL):107 TID: 1 Stress ESV (mL):35 FUNCTIONAL FINDINGS: There is normal left ventricular systolic function. IMPRESSIONS 1. Normal myocardial perfusion imaging with no evidence of ischemia 2. LV systolic function is normal Flaco Lehman MD (Electronically Signed) Final Date: 18 July 2023 08:55 S
--- NOTE | 2023-07-18 08:57 | PC.NURSE ---
return from cardiac stress test .tolerated well.
[2023-07-18] MEDS: aspirin 81 mg EC Tablet PO (09:14)
[2023-07-18] MEDS: metoprolol tartrate 25 mg Tablet 12.5 MG PO (09:14)
[2023-07-18] MEDS: levothyroxine 75 mcg Tablet PO (09:14)
[2023-07-18] MEDS: pantoprazole DR 40 mg Tablet PO (09:14)
--- NOTE | 2023-07-18 09:14 | PC.NURSE ---
Stress test course: patient had 2 doses of beta lynn within the last [address] Guerrero was notified and he stated that the patient had voiced that he wanted to see what his exercise tolerance is. Orders received to continue with Exercise sestamibi stress test and if the patient was agreeable to switching to a Lexiscan sestamibi stress test, then we can change at that time. This was explained to the patient in detail and he wishes to continue with the exercise and can switch to chemical if THR is not reached. The patient then was placed on the treadmill and did not reach his THR due to leg fatigue. A chemical stress test was then carried out.
[2023-07-18] MEDS: enoxaparin 100 mg/mL Syringe 90 MG SUBCUT (09:24)
[2023-07-18] MEDS: atorvastatin 40 mg Tablet PO (09:24)
--- NOTE | 2023-07-18 10:54 | PM.DCS ---
Discharge Providers Date of Admission: 07/17/23 10:23 Date of Discharge: July 18, 2023 Attending Provider at Admission: Coy Olson MD Attending Provider at Discharge: Coy Olson MD Primary Care Provider: Benita Urias DO Diagnoses at Discharge Discharge Diagnosis (1) Coronary artery disease: Status: Acute Qualifiers: Coronary Disease-Associated Artery/Lesion type: mohegan artery [place] vs. transplanted heart: mohegan heart Associated angina: with unspecified angina Qualified Code(s): I25.119 - Atherosclerotic heart disease of mohegan coronary artery with unspecified angina pectoris (2) Hx of CABG: Status: Acute (3) HTN (hypertension) with goal to be determined: Status: Acute (4) Dyslipidemia: Status: Acute (5) Chest pain: Status: Acute Qualifiers: Chest pain type: unspecified Qualified Code(s): R07.9 - Chest pain, unspecified (6) PAD (peripheral artery disease): Status: Acute (7) Prediabetes: Status: Acute (8) CKD (chronic kidney disease): Status: Acute (9) Anemia: Status: Acute Qualifiers: Anemia type: iron deficiency Iron deficiency anemia type: chronic blood loss Qualified Code(s): D50.0 - Iron deficiency anemia secondary to blood loss (chronic) Reason for Visit Reason for Visit: chest pains Hospital Course Hospital Course 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 Initial troponin was elevated but there was no significant delta. EKG was nonspecific. He was placed in the hospital and ruled out for myocardial infarction. He was given full dose anticoagulation, beta-lynn, statin. Cardiology evaluated the patient and recommended nuclear stress test. This was performed on July 18 and demonstrated no reversible ischemia. His symptomatology was concerning for GI etiology and Protonix was initiated on admission. At discharge he was given opportunity ask questions, and agreed with the plan. He will continue aspirin, beta-lynn, statin, Protonix at discharge and follow-up with cardiology 2 weeks, primary care provider 3 to 5 days. Physical Exam Narrative: General exam no distress Neck is supple Cardiovascular regular rate and rhythm without murmur Lungs clear Abdomen is soft Extremities no cyanosis, edema Discharge Data Studies Completed and Pending Completed Studies During Hospitalization Category Date Time Status Cardiac Stress Test MIBI [Sestamibi Stress Test Request Exams 02/07/24 07:12 Draft ] Routine XR chest 1V portable [id number] Stat Exams 07/17/23 07:55 Completed NM swathi perf SPECT r/s* [id number] Routine Nuc Med 07/18/23 08:00 Completed Laboratory Results WBC 5.12 10^3/uL (3.29-11.43) 07/18/23 03:25 RBC 4.22 10^6/uL (3.85-5.65) 07/18/23 03:25 Hgb 12.80 g/dL (11.27-16.99) 07/18/23 03:25 Hct 38.7 % (37-53) 07/18/23 03:25 MCV 91.7 fl (82-101) 07/18/23 03:25 MCH 30.3 pg (27-33) 07/18/23 03:25 MCHC 33.1 g/dL (30-55) 07/18/23 03:25 RDW 13.5 % (12.1-15.1) 07/18/23 03:25 Plt Count 206 10^3/cmm (157-399) 07/18/23 03:25 MPV 10.5 fL (7.4-10.4) H 07/18/23 03:25 Neut % (Auto) 61.9 % 07/18/23 03:25 Lymph % (Auto) 24.6 % 07/18/23 03:25 [place] % (Auto) 10.0 % 07/18/23 03:25 Eos % (Auto) 2.5 % 07/18/23 03:25 Baso % (Auto) 0.6 % 07/18/23 03:25 Neut # (Auto) 3.17 10^3/uL (1.8-7.7) 07/18/23 03:25 Lymph # (Auto) 1.3 10^3/uL (0.8-4.8) 07/18/23 03:25 [place] # (Auto) 0.5 10^3/uL (0.2-0.9) 07/18/23 03:25 Eos # (Auto) 0.1 10^3/uL (0.0-0.8) 07/18/23 03:25 Baso # (Auto) 0.0 10^3/uL (0.0-0.1) 07/18/23 03:25 Nucleated RBC % (auto) 0 % 07/18/23 03:25 Nucleated RBCs # 0.0 /100WBC 07/18/23 03:25 Sodium 139 mmol/L (136-145) 07/18/23 03:25 Potassium 3.9 mmol/L (3.5-5.1) 07/18/23 03:25 Chloride 104 mmol/L (98-107) 07/18/23 03:25 Carbon Dioxide 25 mmol/L (22-29) 07/18/23 03:25 Anion Gap 13.9 (5-19) 07/18/23 03:25 BUN 13 mg/dL (8-23) 07/18/23 03:25 Creatinine 1.2 mg/dL (0.7-1.2) 07/18/23 03:25 GFR Calculation 60.6 mL/min (90-130) L 07/18/23 03:25 Glucose 102 mg/dL (65-115) 07/18/23 03:25 POC Glucose 108 mg/dL (70-110) 07/18/23 05:20 Estimat Average Glucose 108 07/17/23 08:08 Hemoglobin A1c 5.4 % (4.0-6.0) 07/17/23 08:08 Calculated Osmolality 288 mOsm/kg (285-295) 07/18/23 03:25 Calcium 9.1 mg/dL (8.5-10.5) 07/18/23 03:25 Magnesium 1.9 mg/dL (1.7-2.3) 07/17/23 08:08 Total Bilirubin 0.6 mg/dL (0.15-1.2) 07/18/23 03:25 AST 17 U/L (0-40) 07/18/23 03:25 ALT 8 U/L (0-41) 07/18/23 03:25 Alkaline Phosphatase 83 U/L (40-130) 07/18/23 03:25 Troponin T Baseline 19 ng/L (0-15) H 07/17/23 08:08 Troponin T 120 Minute 18.28 ng/L (0-15) H 07/17/23 10:06 Delta Troponin T -0.72 ABS# (0-10) L 07/17/23 10:06 Troponin T Hi Sens 6Hr 18.06 ng/L (0-15) H 07/17/23 14:08 Troponin T Hi Sens 6Hr Delta -0.94 ng/L (0-12) L 07/17/23 14:08 Total Protein 6.5 g/dL (6.6-8.7) L 07/18/23 03:25 Albumin 3.8 g/dL (3.5-5.2) 07/18/23 03:25 Globulin 2.7 g/dL (1.3-4.6) 07/18/23 03:25 TSH 2.21 uIU/mL (0.27-4.20) 07/17/23 08:08 Vitals Last Vital Signs Temp 98.5 F 07/18/23 05:50 Pulse 71 07/18/23 09:45 Resp 21 H 07/18/23 09:45 BP 144/75 07/18/23 09:45 Pulse Ox 96 07/17/23 18:20 O2 Del Method Room Air 07/17/23 15:32 Discharge Plan Discharge Patient Disposition: Home Condition: Stable Prescriptions: New atorvastatin 40 mg Tablet 40 mg PO DAILY Qty: 30 0RF pantoprazole 40 mg Tablet,Delayed Release (Dr/Ec) 40 mg PO DAILY Qty: 30 0RF metoprolol succinate [Toprol XL] 25 mg tablet extended release 24 hr 25 mg PO DAILY Qty: 30 0RF Continued multivitamin Tablet 1 tab PO DAILY acetaminophen [Tylenol Extra Strength] 500 mg tablet 500 mg PO Q6H PRN (Reason: Pain) aspirin [Adult Low Dose Aspirin] 81 mg tablet,delayed release (DR/EC) 81 mg PO DAILY Qty: 90 3RF Hold Instructions: Resume on 03/03/22. Zyrtec 10 mg capsule 10 mg PO DAILY Qty: 90 3RF levothyroxine 75 mcg tablet 75 mcg PO DAILY Qty: 90 3RF diphenhydramine HCl 50 mg capsule 50 mg PO QPM PRN (Reason: ALLERGIES) niacin 1,000 mg tablet extended release 1,000 mg PO DAILY magnesium 200 mg Tablet 200 mg PO EVERY OTHER DAY Discharge Orders: Discharge Order (Routine); Ordered 07/18/23 Ordered By: Coy Olson Referrals: Benita Urias DO [Primary Care Provider] - 4-7 days Guerline Armenta FNP [Nurse Practitioner] - 2 weeks Discharge Diet: Cardiac Discharge Activity: Increase activity as tolerated Patient Instructions: Opioid Safety Activity Restrictions/Additional Instructions: Take all medicine as prescribed Follow-up with your primary care provider 3 to 5 days, cardiology 2 weeks Discharge Attestations Time Spent in Discharge Care*: greater than 30 min Quality Metrics Clinical Quality Measures [ No reported AMI, CVA or VTE this stay] Coding Level of Care Code 67557 Total time (in minutes) for Discharge: 35 Diagnoses Coronary artery disease involving mohegan coronary artery of mohegan heart with angina pectoris I25.119 Coronary Disease-Associated Artery/Lesion type: mohegan artery [place] vs. transplanted heart: mohegan heart Associated angina: with unspecified angina Hx of CABG Z95.1 HTN (hypertension) with goal to be determined I10 Dyslipidemia E78.5 Chest pain, unspecified type R07.9 Chest pain type: unspecified PAD (peripheral artery disease) I73.9 Prediabetes R73.03 CKD (chronic kidney disease) N18.9 Iron deficiency anemia due to chronic blood loss D50.0 Anemia type: iron deficiency Iron deficiency anemia type: chronic blood loss
== END 2023-07-18 12:31 | disposition home or self-care (01) ==
LOC: ER 09:46 → CSU 10:26
PROVIDERS: Admitting Provider Internal Medicine; Emergency Provider Family Medicine; PCP Family Medicine; Visit Provider Internal Medicine
DX: I25.119 Atherosclerotic heart disease of native coronary artery with unspecified angina pectoris (principal); Z95.1 Presence of aortocoronary bypass graft; E78.5 Hyperlipidemia, unspecified; R07.9 Chest pain, unspecified; I73.9 Peripheral vascular disease, unspecified; R73.03 Prediabetes; I12.9 Hypertensive chronic kidney disease with stage 1 through stage 4 chronic kidney disease, or unspecified chronic kidney disease; N18.9 Chronic kidney disease, unspecified; D50.0 Iron deficiency anemia secondary to blood loss (chronic); D63.1 Anemia in chronic kidney disease; G47.30 Sleep apnea, unspecified; Z79.82 Long term (current) use of aspirin; Z86.16 Personal history of COVID-19
CPT/HCPCS: 36415; 36416; 71045; 78452; 80053; 82962; 83036; 83735; 84443; 84484; 85025; 93005; 93017; 96372; 96375; 99285; A9500; G0378; J1650; J2785; Q0163

== ENCOUNTER → 2023-11-23 07:28 | Outpatient (BNVA) | payer OTHER, SELFPAY | PROVIDERS: PCP Family Medicine; Visit Provider Family Medicine | DX: R35.1 Nocturia (principal); R97.20 Elevated prostate specific antigen [PSA] | CPT/HCPCS: 84153 ==

== ENCOUNTER → 2024-01-30 07:08 | Outpatient (BNVA) | payer OTHER, SELFPAY | PROVIDERS: PCP Family Medicine; Visit Provider Family Medicine | DX: E03.9 Hypothyroidism, unspecified (principal); E78.5 Hyperlipidemia, unspecified; I50.20 Unspecified systolic (congestive) heart failure; I73.9 Peripheral vascular disease, unspecified | CPT/HCPCS: 80053; 80061; 82533; 83615; 83880; 84439; 84443; 85025 ==

== ENCOUNTER 2024-02-12 10:53 | Outpatient (CLI) | payer OTHER, SELFPAY ==
--- NOTE | 2024-02-12 11:30 | PETR_ITS ---
PROCEDURE INFORMATION: Exam: PET/CT Skull Base to Mid-thigh Exam date and time: 02/12/2024 12:49 PM Age: 68 years old Clinical indication: Condition or disease; Primary cancer: Melanoma; Initial oncological staging assessment; Prior surgery; Surgery date: 6+ months; Surgery type: Triple bypass; Additional info: Melanoma, concern for metastasis LABS AND CLINICAL REPORTS: Glucose: 92 mg/dl Treatment strategy for malignancy (PET staging): Initial Staging (PI) TECHNIQUE: Imaging protocol: Following at least four-hour fasting and following the injection of radiopharmaceutical, low dose CT images were obtained. Then, PET images were obtained. Attenuation corrected images were constructed using the CT scan. Fused images of PET and CT were reviewed. The standardized uptake values (SUV) reported below are maximum values within a region of interest, expressed in gm/ml. Exam includes orbital meatal line to mid-thigh. Radiopharmaceutical: 10.99 mCi F-18 FDG (Fluorodeoxyglucose), IV. Time of imaging post radiopharmaceutical administration: 1 hour Injection site: left AC COMPARISON: CR XR chest 1V portable [id number] 07/17/2023 8:10 AM FINDINGS: Brain: Visualized brain has normal physiologic uptake. Pharynx: No abnormal uptake. Larynx: No abnormal uptake. Lungs, pleura and trachea: Calcified granulomas in the lungs. Heart: Cardiomegaly. Coronary arteries: Changes of prior CABG. Mediastinal space: No abnormal uptake. Liver: SUV max of liver is 3.7. Calcified hepatic granulomas. Gallbladder and biliary ducts: No abnormal uptake. Pancreas: No abnormal uptake. Spleen: Calcified splenic granulomas. Adrenal glands: No abnormal uptake. Kidneys and ureters: Normal physiologic uptake. Stomach and bowel: No abnormal uptake. Reproductive: Prostatomegaly. Vasculature: No abnormal uptake. Lymph nodes: Calcified mediastinal and hilar lymph nodes demonstrate mild hypermetabolic activity with SUV max 4.1. This is favored to be sequela of granulomatous disease. Skeleton: Prior plate and screw fixation of the left clavicle. Soft tissues: Query changes of prior inguinal hernia repair, possibly bilaterally. Other findings: SUV max of blood pool is 3.7. PET/PET skull to thigh INIT [id number] IMPRESSION: No definite FDG avid disease is identified.
== END 2024-02-12 10:54 | disposition home or self-care (01) ==
PROVIDERS: PCP Family Medicine; Visit Provider Family Medicine
DX: C43.9 Malignant melanoma of skin, unspecified (principal)
CPT/HCPCS: 78815; 80053; 80061; 82533; 83615; 83880; 84439; 84443; 85025; A9552

== ENCOUNTER → 2024-02-29 11:12 | Outpatient (BNVA) | payer OTHER, SELFPAY | PROVIDERS: PCP Family Medicine; Visit Provider Family Medicine | DX: Z12.5 Encounter for screening for malignant neoplasm of prostate (principal); N40.1 Benign prostatic hyperplasia with lower urinary tract symptoms; R35.1 Nocturia | CPT/HCPCS: 84153 ==

== ENCOUNTER → 2024-05-01 11:44 | Outpatient (BNVA) | payer OTHER, SELFPAY | PROVIDERS: PCP Family Medicine; Visit Provider Specialist | DX: G31.84 Mild cognitive impairment of uncertain or unknown etiology (principal) | CPT/HCPCS: 82542; 82607; 82746; 83520; 85651 ==

== ENCOUNTER 2024-06-18 07:09 | Outpatient (CLI) | payer MEDICARE, SELFPAY ==
--- NOTE | 2024-06-18 07:15 | MR_ITS ---
WS: [id number] MRI HEAD WITHOUT CONTRAST TECHNIQUE: Sagittal T1, T2 axial, T2 axial FLAIR, axial and coronal T1 images, axial susceptibility w eighted imaging, axial diffusion weighted images, and coronal T2 images were obtained. CLINICAL INFORMATION: G31.84 - Mild cognitive impairment of uncertain or unknow... COMPARISON: None. FINDINGS: No evidence of restricted diffusion to suggest acute ischemia. Ventricular system and basal cisterns are patent. Minimal small vessel changes. Mild to moderate parenchymal volume loss. Tiny chronic lacu marilia infarct LEFT cerebellum. Normal vascular flow voids at the skull base. No extra-axial fluid colle ctions. No evidence of mass or mass effect. Mild vermian and medullary atrophy can be seen with verte brobasilar insufficiency. Midbrain and janet appear normal. Paranasal sinuses are well aerated. Mastoid air cells are well aerated. No hemosiderin on the suscept ibly weighted images. Normal optic chiasm and pituitary infundibulum. Normal proportionate mild symmetric atrophy temporal lobes hippocampal formations. Normal cavernous sinuses and Meckel's cave. . MR/MR head wo con* [id number] IMPRESSION: 1. No evidence of restricted diffusion to suggest acute ischemia. 2. Very minimal small vessel changes and mild to moderate parenchymal volume l oss normal for age 3. Mild vermian and medullary atrophy nonspecific and can be seen with normal aging but consider vertebrobasilar insufficiency. 4. Normal mild proportionate symmetric atrophy temporal lobes and hippocampal formations. 5. Tiny chronic infarct LEFT cerebellum. 6. No hemosiderin on the susceptibility weighted images.
[2024-06-18 08:42] LABS: Vitamin B12 382 pg/mL (232-1245)
== END 2024-06-18 07:10 | disposition home or self-care (01) ==
LOC: RAD 07:10
PROVIDERS: PCP Family Medicine; Visit Provider Specialist
DX: G31.84 Mild cognitive impairment of uncertain or unknown etiology (principal); E53.8 Deficiency of other specified B group vitamins; R93.0 Abnormal findings on diagnostic imaging of skull and head, not elsewhere classified; G31.89 Other specified degenerative diseases of nervous system
CPT/HCPCS: 36415; 70551; 82607

== ENCOUNTER 2024-07-01 10:28 | Outpatient (CLI) | payer MEDICARE, SELFPAY ==
--- NOTE | 2024-07-01 11:00 | MR_ITS ---
WS: [id number] MRA CAROTID WITHOUT AND WITH GADOLINIUM ENHANCEMENT TECHNIQUE: Axial 2-D TOF and gadolinium bolus images obtained with axial images and axial, sagittal, and coronal 2-D reformatted images. CLINICAL INFORMATION: G31.84 - Mild cognitive impairment of uncertain or unknow... COMPARISON: None. FINDINGS: RIGHT: RIGHT common carotid artery is patent. No significant RIGHT ICA stenosis. RIGHT ICA is patent to the skull base. LEFT: LEFT common carotid artery is patent. No significant LEFT ICA stenosis. LEFT ICA is patent to t he skull base. LEFT dominant vertebral artery. Smaller but patent RIGHT vertebral artery. Proximal subclavian arteri es are patent. Mild stenosis RIGHT subclavian artery origin MR/MR angio neck w con* [id number] IMPRESSION: 1. No significant cervical ICA stenosis. 2. LEFT dominant vertebral artery. Smaller but patent RIGHT vertebral artery. 3. Proximal subclavian arteries are patent. Mild stenosis RIGHT subclavian art yoselin origin.
[2024-07-01] MEDS: gadobenate dimeglumine 20 mL vial IV (11:29)
--- NOTE | 2024-07-01 11:45 | MR_ITS ---
WS: [id number] MRA HEAD TECHNIQUE: Axial 3-D TOF images obtained with axial images and axial, sagittal, and coronal 2-D refor matted images. CLINICAL INFORMATION: G31.84 - Mild cognitive impairment of uncertain or unknow... COMPARISON: None. FINDINGS: Distal vertebral arteries are patent. Basilar artery is patent. Normal vascularity to the [employer] territo sonia bilaterally. Both ICAs are patent at the skull base. Patent anterior communicating artery. Normal vascularity to t he MARQUES and MCA territories bilaterally. No evidence of proximal flow-limiting stenosis. Hypoplastic L EFT A1 segment. MR/MR angio head wo con [id number] IMPRESSION: Normal intracranial MRA.
== END 2024-07-01 10:29 | disposition home or self-care (01) ==
LOC: RAD 10:28
PROVIDERS: PCP Family Medicine; Visit Provider Specialist
DX: G31.84 Mild cognitive impairment of uncertain or unknown etiology (principal); I73.9 Peripheral vascular disease, unspecified; R93.0 Abnormal findings on diagnostic imaging of skull and head, not elsewhere classified; R93.89 Abnormal findings on diagnostic imaging of other specified body structures; I70.8 Atherosclerosis of other arteries
CPT/HCPCS: 70544; 70548

== ENCOUNTER → 2025-01-19 11:50 | Outpatient (BNVA) | payer MEDICARE, SELFPAY | PROVIDERS: PCP Family Medicine; Visit Provider Dermatology | DX: D22.5 Melanocytic nevi of trunk (principal); L82.1 Other seborrheic keratosis; S60.032A Contusion of left middle finger without damage to nail, initial encounter; X58.XXXA Exposure to other specified factors, initial encounter; Z85.820 Personal history of malignant melanoma of skin; Z80.8 Family history of malignant neoplasm of other organs or systems; D48.5 Neoplasm of uncertain behavior of skin | CPT/HCPCS: 11102; 99213 ==